=== PATIENT | female | born 1975 | race Caucasian/White ===

== ENCOUNTER 2016-12-11 21:42 | Emergency (ER) | payer MEDICAID ==
[2016-12-12] MEDS ORDERED: Tetracaine HCl/PF 0.5% 4 ML Bottle EYELF ONE (00:36)
[2016-12-12 00:47] VITALS: BP 127/72
--- NOTE | 2016-12-12 01:20 | EDM.PDOC ---
[id number] SOMETHING IN EYE Time Seen by Provider: 12/12/16 01:14 Source: Reports: Patient History Limitations: Reports: No limitations - History of Present Illness INITIAL COMMENTS - FREE TEXT/NARRATIVE: pt was at a [place] party last nite and she may have gotten a scratch in the left eye with a finger nail. Timing/Duration: Reports: Hour(s):, Other (pt is very uncomfortable. ) Location: left eye Quality: Reports: Burning, Sharp Severity: moderate Context: Reports: other ( finger nail) Associated Symptoms (Eye): Reports: decreased/blurred, sensitivity to light - Related Data Allergies/ADRs: Allergies azithromycin [From Zithromax] Allergy (Verified 12/22/15 07:59) Rash codeine Allergy (Verified 12/22/15 07:59) Rash Bkrwnmh-Ezs-Bpp Reductase Inhibitor Adverse Reaction (Verified 12/22/15 07:59) Muscle Aches moth balls Allergy (Uncoded 12/22/15 07:59) Rash Home Meds: Ambulatory Orders Medication Instructions Recorded Confirmed Losartan [Cozaar] 50 mg PO DAILY 04/30/14 12/12/16 Norethindrone [Norethindrone 5 mg PO DAILY 04/30/14 12/12/16 Acetate] Rizatriptan [Maxalt] 10 mg PO ASDIRECTED PRN 04/30/14 12/12/16 DULoxetine HCl [Cymbalta] 30 mg PO DAILY 12/18/15 12/12/16 Fluocinonide [Lidex 0.05% Top Soln] 0 ml TOP BID 12/18/15 12/12/16 Naproxen 500 mg PO BID 12/18/15 12/12/16 Citalopram [Citalopram HBr] 40 mg PO DAILY 10/22/16 12/12/16 Pregabalin [Lyrica] 75 mg PO BID 10/22/16 12/12/16 Past Medical History Cardiovascular History: Reports: High cholesterol Genitourinary History: Reports: Renal calculus, Renal disease, UTI, recurrent Other Genitourinary History: stage III kidney disease 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: Dysfunctional uterine bleeding, Endometrial ablation, Musculoskeletal History: Reports: Fibromyalgia Psychiatric History: Reports: Anxiety Endocrine/Metabolic History: Reports: Diabetes, type II, Obesity/BMI 30+ Dermatologic History: Reports: Psoriasis - Infectious Disease History Infectious Disease History: Reports: Chicken pox - Past Surgical History Female Surgical History: Reports: section, Endometrial ablation, Other (see below) Other Female Surgeries/Procedures: ureter valve reconstruction Musculoskeletal Surgical History: Reports: Carpal tunnel Social & Family History - Family History Family Medical History: Noncontributory - Tobacco Use Smoking Status *Q: Current Every Day Smoker Years of Tobacco use: 30 Packs/Tins Daily: 0.5 Used Tobacco, but Quit: No Month Tobacco Last Used: April Second Hand Smoke Exposure: No - Caffeine Use Caffeine Use: Reports: Coffee - Alcohol Use Days Per Week of Alcohol Use: 1 Number of Drinks Per Day: 2 Total Drinks Per Week: 2 - Recreational Drug Use Recreational Drug Use: No ED ROS GENERAL - Review of Systems Review Of Systems: See Below Constitutional: Reports: no symptoms HEENT: Reports: Other (pain in the lef eye after a possible scratch in the eye. ) Respiratory: Reports: No Symptoms Cardiovascular: Reports: No symptoms Endocrine: Reports: no symptoms GI/Abdominal: Reports: No symptoms : Reports: no symptoms ED EXAM GENERAL W FULL EYE - Physical Exam Exam: See Below Text/Narrative:: Pt has a painful left eye , Her viion is very blurry. Exam Limited By: No limitations General Appearance: alert, moderate distress Comments: pt has a red conjuntivial area. She is very uncoomfortable, Tetracaine was inserted in the left eye. The eye waS EXAMINED AND THERE WAS NO EVIDENCE OF A FOREIGN BODY. tHE EYE WAS STAINED AND THERE IS A DEEP LARGE CORNEAL ABRASION OVER THE PUPIL AREA. Ears: normal TMs Nose: nasal deformity Throat/Mouth: Normal inspection Neck: normal inspection Respiratory/Chest: no respiratory distress Course - Vital Signs Last Recorded V/S: Last Vital Signs Temp 36.0 C 12/12/16 00:44 Pulse 70 12/12/16 00:44 Resp 18 12/12/16 00:44 BP 127/72 12/12/16 00:44 Pulse Ox 98 12/12/16 00:44 - Orders/Labs/Meds Meds: Medications Discontinued Medications Generic Name Dose Route Start Last Admin Trade Name Freq PRN Reason Stop Dose Admin Gentamicin Sulfate 1 gm 12/12/16 09:00 12/12/16 01:29 Gentak 0.3% Ophth Oint EYELF 1 applic TID ARELI Administration Gentamicin Sulfate Confirm 12/12/16 01:24 12/12/16 01:29 Gentak 0.3% Ophth Oint Administered 12/12/16 01:25 Not Given Dose 3.5 gm .ROUTE .STK-MED ONE Tetracaine HCl 1 ml 12/12/16 00:36 12/12/16 00:42 Tetracaine 0.5% Steri-Unit Maite EYELF 12/12/16 00:37 1 ml ASDIRECTED ONE Administration - Re-Assessments/Exams Free Text/Narrative Re-Assessment/Exam: 12/12/16 01:23 TETRACAINE WAS INSERTED IN THE EYE FOR MORE PAIN RELIEF, GENTAMYCIN EYE OINTMENT WAS PUT IN THE EYE. iT WAS PATCHED. pT IS ADVISED TO GO TO THE [facility] IN THE AM. Departure - Departure Time of Disposition: 01:26 Disposition: Home, Self-Care 01 Condition: fair Clinical Impression: Corneal abrasion Instructions: Corneal Abrasion, [id number] Referrals: Aleksander Gibson MD [Primary Care Provider] - Forms: ED Department Discharge Care Plan Goals: p lEAVE PATCH ON UNTIL MID-DAY. GO TO THE [facility] FOR A RECHECK IF PAIN IS PERSISTENT. iF IT IS FEELING BETTER AND VISION IS DOING OK WHEN PATCH IS REMOVED START GENTAMYCIN EYE DROPS TID. norco 5/325 q6h prn for pain
== END 2016-12-12 01:45 | disposition home or self-care (01) ==
LOC: JP.ED 21:42
DX: S05.02XA Injury of conjunctiva and corneal abrasion without foreign body, left eye, initial encounter (principal); N18.3 Chronic kidney disease, stage 3 (moderate); E11.9 Type 2 diabetes mellitus without complications; F17.210 Nicotine dependence, cigarettes, uncomplicated; E66.9 Obesity, unspecified; Z68.41 Body mass index [BMI] 40.0-44.9, adult; Z98.890 Other specified postprocedural states; Z79.899 Other long term (current) drug therapy; Z88.1 Allergy status to other antibiotic agents; Z88.5 Allergy status to narcotic agent; Z88.8 Allergy status to other drugs, medicaments and biological substances
CPT/HCPCS: 99283; A9270

== ENCOUNTER 2017-01-08 15:26 | Emergency (ER) | payer MEDICAID ==
[2017-01-08 15:38] VITALS: BP 112/60
[2017-01-08] MEDS ORDERED: Amoxicillin/Clavulanate K 875-125 MG Tab PO ONE (16:04)
--- NOTE | 2017-01-08 16:08 | EDM.PDOC ---
ED HPI GENERAL MEDICAL PROBLEM - General Chief Complaint: Gastrointestinal Problem Stated Complaint: L EYE STYE & R ARM PAIN Time Seen by Provider: 01/08/17 15:40 Source of Information: Reports: Patient History Limitations: Reports: No limitations - History of Present Illness INITIAL COMMENTS - FREE TEXT/NARRATIVE: 41-year-old female in with several complaints. The first is she has some inflammation in the left eye the past several days, she has some swelling on the dorsal aspect of the upper right arm and some intermittent right flank pain. She has had no fevers or chills but she has generalized achiness. She also has some recurring right flank pain is concerned about a "kidney infection ". No nausea or vomiting. Just generally feels poorly. Onset: unknown/unsure (Over the past 3-5 days) Location: Reports: face, back, upper extremity, right Associated Symptoms: Reports: malaise. Denies: chest pain, cough, fever/chills , headaches, nausea/vomiting, shortness of breath Right Arm Pain Score (Numeric/FACES): 8 - Related Data Allergies Allergy/AdvReac Type Severity Reaction Status Date / Time azithromycin [From Zithromax] Allergy Rash Verified 12/22/15 07:59 codeine Allergy Rash Verified 12/22/15 07:59 Vizmonw-Rbg-Sye Reductase AdvReac Muscle Verified 12/22/15 07:59 Inhibitor Aches moth balls Allergy Rash Uncoded 12/22/15 07:59 Home Meds: Home Meds Losartan [Cozaar] 50 mg PO DAILY 04/30/14 [History] Fluocinonide [Lidex 0.05% Top Soln] 0 ml TOP BID 12/18/15 [History] Naproxen 500 mg PO BID 12/18/15 [History] Citalopram [Citalopram HBr] 40 mg PO DAILY 10/22/16 [History] Pregabalin [Lyrica] 75 mg PO BID 10/22/16 [History] Past Medical History - Past Health History Medical/Surgical History: Denies Medical/Surgical History Cardiovascular History: Reports: High cholesterol Genitourinary History: Reports: Renal calculus, Renal disease, UTI, recurrent Other Genitourinary History: stage III kidney disease 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: Dysfunctional uterine bleeding, Endometrial ablation, Musculoskeletal History: Reports: Fibromyalgia Psychiatric History: Reports: Anxiety Endocrine/Metabolic History: Reports: Diabetes, type II, Obesity/BMI 30+ Dermatologic History: Reports: Psoriasis - Infectious Disease History Infectious Disease History: Reports: Chicken pox - Past Surgical History Female Surgical History: Reports: section, Endometrial ablation, Other (see below) Other Female Surgeries/Procedures: ureter valve reconstruction Musculoskeletal Surgical History: Reports: Carpal tunnel Social & Family History - Family History Family Medical History: Noncontributory - Tobacco Use Smoking Status *Q: Heavy Tobacco Smoker Years of Tobacco use: 30 Packs/Tins Daily: 1 Used Tobacco, but Quit: No Month Tobacco Last Used: April Second Hand Smoke Exposure: No - Caffeine Use Caffeine Use: Reports: Soda - Alcohol Use Days Per Week of Alcohol Use: 1 Number of Drinks Per Day: 2 Total Drinks Per Week: 2 - Recreational Drug Use Recreational Drug Use: No ED ROS GENERAL - Review of Systems Review Of Systems: See Below Constitutional: Reports: no symptoms HEENT: Reports: Eye discharge, Eye pain ( lateral corner and upper eyelid of the left eye) Respiratory: Denies: Shortness of Breath, Cough Cardiovascular: Denies: Chest pain GI/Abdominal: Denies: Abdominal pain Skin: Reports: other (She has redness, edema, and a deep lump palpable in the upper posterior right arm) Neurological: Reports: No Symptoms Psychiatric: Reports: No symptoms ED EXAM, GENERAL - Physical Exam Exam: See Below Exam Limited By: No limitations General Appearance: alert, no apparent distress Eye Exam: left eye: other (The left thigh has some tenderness and swelling of the lateral upper eyelid with a small amount of exudate) Neck: normal inspection Respiratory/Chest: no respiratory distress Cardiovascular: regular rate, rhythm GI/Abdominal: non tender Back Exam: CVA tenderness (R) (Some mild CVA discomfort with palpation and percussion) Extremities: other (She is an unusual fullness to the subcutaneous tissue, redness and mild warmth on the back of the upper right arm. It does appear to have a small cystic lesion palpable deep to the inflammation, but there is no superficial fluctuance or firmness) Course - Vital Signs Last Recorded V/S: Last Vital Signs Temp 98.6 F 01/08/17 15:40 Pulse 76 01/08/17 15:40 Resp 16 01/08/17 15:40 BP 112/60 01/08/17 15:40 Pulse Ox 100 01/08/17 15:40 - Orders/Labs/Meds Labs: Laboratory Tests 01/08/17 Range/Units 16:04 Urine Color Yellow Urine Appearance Clear Urine pH 6.0 (4.5-8.0) Ur Specific [place] 1.015 (1.008-1.030) Urine Protein Negative (NEGATIVE) mg/dL Urine Glucose (UA) Normal (NEGATIVE) mg/dL Urine Ketones Negative (NEGATIVE) mg/dL Urine Occult Blood Negative (NEGATIVE) Urine Nitrite Negative (NEGATIVE) Urine Bilirubin Negative (NEGATIVE) Urine Urobilinogen Normal (NORMAL) mg/dL Ur Leukocyte Esterase Negative (NEGATIVE) Urine RBC 0-5 (0-5) Urine WBC 0-5 (0-5) Ur Epithelial Cells Moderate Amorphous Sediment Rare Urine Bacteria Few Urine Mucus Rare Meds: Medications Discontinued Medications Generic Name Dose Route Start Last Admin Trade Name Freq PRN Reason Stop Dose Admin Amoxicillin/Clavulanate Potassium 1 tab 01/08/17 16:04 01/08/17 16:07 Augmentin 875 Mg/125 Mg PO 01/08/17 16:05 1 tab ONETIME ONE Administration - Re-Assessments/Exams Free Text/Narrative Re-Assessment/Exam: 01/08/17 16:08 A UA was obtained. The patient was given 875 mg of Augmentin by mouth. 01/08/17 16:48 UA was completely normal. Patient was continued on Augmentin twice daily for at least another 7 days. Recheck in 2-3 days if not improving. Departure - Departure Time of Disposition: 16:59 Disposition: Home, Self-Care 01 Condition: good Clinical Impression: Cellulitis, upper arm Conjunctivitis Qualifiers: Conjunctivitis type: acute Acute conjunctivitis type: bacterial Laterality: left Qualified Code(s): H10.32 - Unspecified acute conjunctivitis, left eye Sarah Qualifiers: Laterality: left Eyelid: upper Qualified Code(s): H00.014 - Hordeolum externum left upper eyelid Instructions: Sarah Referrals: Aleksander Gibson MD [Primary Care Provider] - Forms: ED Department Discharge Care Plan Goals: Continue with warm compresses to the eye, and take antibiotic twice daily as prescribed. Consider rechecking the arm in 2-3 days if not significant improvement or return sooner if worsening or concerns.
== END 2017-01-08 17:00 | disposition home or self-care (01) ==
LOC: JP.ED 15:26
DX: L03.113 Cellulitis of right upper limb (principal); H10.32 Unspecified acute conjunctivitis, left eye; H00.014 Hordeolum externum left upper eyelid; I12.9 Hypertensive chronic kidney disease with stage 1 through stage 4 chronic kidney disease, or unspecified chronic kidney disease; N18.3 Chronic kidney disease, stage 3 (moderate); E11.9 Type 2 diabetes mellitus without complications; E78.00 Pure hypercholesterolemia, unspecified; F41.9 Anxiety disorder, unspecified; F17.210 Nicotine dependence, cigarettes, uncomplicated; E66.9 Obesity, unspecified; Z68.41 Body mass index [BMI] 40.0-44.9, adult; Z98.890 Other specified postprocedural states; Z88.1 Allergy status to other antibiotic agents; Z88.5 Allergy status to narcotic agent; Z88.8 Allergy status to other drugs, medicaments and biological substances
CPT/HCPCS: 81001; 99284; A9270; 99283

== ENCOUNTER 2017-01-12 08:34 | Day surgery (SDC) | payer MEDICAID ==
[~2017-01-12 08:34] MED LIST: Bupivacaine 0.5% 50 ML MDV ONE; Lidocaine 1% with EPINEPHrine 1:100,000 50 ML MDV ONE; Midazolam 1 MG/ML 2 ML SDV ONE; Propofol 200 MG/20 ML SDV ONE; fentaNYL 100 MCG/2 ML SDV ONE
[2017-01-12] MEDS ORDERED: Dextrose 5%-Lactated Ringers 1,000 ML IV SCH (09:15)
[2017-01-12] MEDS ORDERED: Albuterol/Ipratropium 3.0-0.5 MG/3 ML Neb Soln NEB ONE (09:45)
[2017-01-12] MEDS ORDERED: Ondansetron 4 MG/2 ML SDV ONE (09:50)
[2017-01-12] MEDS ORDERED: Dexamethasone 4 MG/ML SDV ONE (09:50)
[2017-01-12] MEDS ORDERED: Rocuronium 50 MG/5 ML Vial ONE (09:50)
[2017-01-12] MEDS ORDERED: Succinylcholine/Normal Saline 200 MG/10 ML Syringe ONE (09:50)
[2017-01-12] MEDS ORDERED: fentaNYL 250 MCG/5 ML SDV ONE (09:50)
[2017-01-12] MEDS ORDERED: Neostigmine Methylsulfate 1 MG/ML 5 ML Syringe ONE (09:50)
[2017-01-12] MEDS ORDERED: Lidocaine 1% 2 ML ONE (09:54)
[2017-01-12] MEDS ORDERED: Linezolid 600 MG in Premix Bag 1 BAG IV ONE (10:00)
[2017-01-12 11:57] VITALS: BP 114/66
--- NOTE | 2017-01-15 15:20 | OR ---
DATE OF PROCEDURE: 01/12/2017 PREOPERATIVE DIAGNOSIS: Infected soft tissue mass, right axilla. POSTOPERATIVE DIAGNOSIS: Infected subfascial soft tissue mass with associated abscess, right axilla. OPERATIVE PROCEDURE: 1. Incision and drainage of abscess located in subfascial location, right axilla. 2. Excision of necrotic soft tissue mass of the right axilla ([id number]). ANESTHESIA: General. INDICATION FOR PROCEDURE: The patient was referred per Dr. Gibson in [facility] with ongoing infection in what appeared to be soft tissue mass, possibly lymph node in the right axilla fenestrated with a new drainage and excision of that area. Potential risks including bleeding, infection, recurrence of the problem over time, problems with injury to the underlying nerves were reviewed, and the patient wishes to proceed. DETAILS OF PROCEDURE: The patient was taken to the operating room and placed in a supine position. After general endotracheal anesthesia was induced, the right axilla and surrounding areas were prepped and draped. An elliptical incision was made, removing some of the overlying skin and carried down through the skin and subcutaneous tissue. An attempt was made to maintain a plane of dissection outside of the mass. However, the abscess cavity was entered quite quickly. Creamy purulent material was obtained and gram stain showed gram- positive cocci suggestive of ongoing MRSA infection with the patient having history of MRSA infection in the past. With the abscess now drained, the soft tissue around it which was fairly necrotic in appearance, was excised we were able to remove all the necrotic soft tissue and the final plane of tissue left in place was clearly non-infective appearing fat. The mass itself measured around 6 cm and was sent for histologic evaluation. It did not appear to be lymph node per se, although the tissue was fairly necrotic. The area was packed with iodoform gauze and dressing applied. The patient will be followed up tomorrow morning with surgery nurses for the initial dressing change and instructions regarding wound care. She will be continuing the clindamycin which was started [address] Gibson. Maury Phillips MD /[id number]
== END 2017-01-12 12:01 | disposition home or self-care (01) ==
LOC: JP.SDS 08:34
PROVIDERS: ATTEND Surgery
PROC: 0JBD3ZZ Excision of Right Upper Arm Subcutaneous Tissue and Fascia, Percutaneous Approach (ICD-10-PCS; principal; 2017-01-12)
DX: R22.9 Localized swelling, mass and lump, unspecified (principal); L04.2 Acute lymphadenitis of upper limb
CPT/HCPCS: 24073; 36415; 80048; 85027; 87070; 87075; 87077; 87186; 87205; 88304; J1100; J2020; J2250; J2405; J2704; J3010; J7042; J7620

== ENCOUNTER 2017-10-08 14:39 | Emergency (ER) | payer MEDICAID ==
[2017-10-08] MEDS ORDERED: Ketorolac 60 MG/2 ML SDV IM ONE (15:05)
[2017-10-08] MEDS ORDERED: Ondansetron 4 MG Tab.DIS PO ONE (15:10)
--- NOTE | 2017-10-08 15:15 | EDM.PDOC ---
ED HPI GENERAL MEDICAL PROBLEM - General Chief Complaint: Flank Pain Stated Complaint: RIDE SIDE PAIN AROUND TO BACK Time Seen by Provider: 10/08/17 15:00 Source of Information: Reports: Patient, Old Records History Limitations: Reports: No Limitations - History of Present Illness INITIAL COMMENTS - FREE TEXT/NARRATIVE: 42 yo female with a pHx of kidney stones presents with recent onset of R flank pain. Pain is intermittent. Has nausea without vomiting. No dysuria or gross hematuria. Onset: Today Onset Date: 10/08/17 Duration: Hour(s): Location: Reports: Back (R flank) Quality: Reports: Sharp Severity: Moderate Improves with: Reports: None Worsens with: Reports: None Context: Reports: Other (Hx of kidney stones) Associated Symptoms: Reports: Nausea/Vomiting (No vomiting). Denies: Fever/ Chills Treatments STOPER: Reports: Other (see below) (none) Right Flank Pain Score (Numeric/FACES): 8 - Related Data Allergies Allergy/AdvReac Type Severity Reaction Status Date / Time azithromycin [From Zithromax] Allergy Rash Verified 01/12/17 09:06 codeine Allergy Rash Verified 01/12/17 09:06 Ytutsjd-Dyk-Xgo Reductase AdvReac Muscle Verified 01/12/17 09:06 Inhibitor Aches moth balls Allergy Rash Uncoded 01/12/17 09:06 Home Meds: Home Meds Losartan [Cozaar] 50 mg PO DAILY 04/30/14 [History] Fluocinonide [Lidex 0.05% Top Soln] 0 ml TOP BID 12/18/15 [History] Naproxen 500 mg PO BID 12/18/15 [History] Citalopram [Citalopram HBr] 40 mg PO DAILY 10/22/16 [History] Pregabalin [Lyrica] 75 mg PO BID 10/22/16 [History] Norethindrone [Norethindrone Acetate] 5 mg PO DAILY 01/11/17 [History] Triamcinolone Acetonide [Kenalog 0.1% Crm] 1 applic TOP BID 01/11/17 [History] metroNIDAZOLE [Metrocream] 1 applic TP BID PRN 01/11/17 [History] Varenicline [Chantix] 10/08/17 [History] Past Medical History - Past Health History Medical/Surgical History: Denies Medical/Surgical History HEENT History: Reports: Other (See Below) Other HEENT History: conjuctivitis in left eye, right eye injury in 2013 Cardiovascular History: Reports: High Cholesterol Genitourinary History: Reports: Renal Calculus, Renal Disease, UTI, Recurrent Other Genitourinary History: stage III kidney disease 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, Endometrial Ablation, Musculoskeletal History: Reports: Fibromyalgia Neurological History: Reports: Headaches, Chronic Psychiatric History: Reports: Anxiety Endocrine/Metabolic History: Reports: Diabetes, Type II, Obesity/BMI 30+ Hematologic History: Reports: Anemia Dermatologic History: Reports: Psoriasis - Infectious Disease History Infectious Disease History: Reports: Chicken Pox, MRSA, Shingles - Past Surgical History Female Surgical History: Reports: Section, Endometrial Ablation, Other (See Below) Musculoskeletal Surgical History: Reports: Carpal Tunnel Dermatological Surgical History: Reports: None Social & Family History - Family History Family Medical History: Noncontributory - Tobacco Use Smoking Status *Q: Current Every Day Smoker Years of Tobacco use: 25 Packs/Tins Daily: 0.5 Used Tobacco, but Quit: No Month Tobacco Last Used: April Second Hand Smoke Exposure: No - Caffeine Use Caffeine Use: Reports: Coffee - Alcohol Use Days Per Week of Alcohol Use: 1 Number of Drinks Per Day: 2 Total Drinks Per Week: 2 - Recreational Drug Use Recreational Drug Use: No ED ROS GENERAL - Review of Systems Review Of Systems: See Below Constitutional: Reports: No Symptoms Respiratory: Reports: No Symptoms Cardiovascular: Reports: No Symptoms GI/Abdominal: Reports: Decreased Appetite, Nausea. Denies: Black Stool, Bloody Stool, Constipation, Diarrhea, Distension, Flatus, Hematemesis, Hematochezia, Vomiting : Reports: Flank Pain (right). Denies: Dysuria, Hematuria Musculoskeletal: Reports: No Symptoms Skin: Reports: No Symptoms ED EXAM, RENAL/ - Physical Exam Exam: See Below Exam Limited By: No Limitations General Appearance: Alert, WD/WN, No Apparent Distress, Obese Eye Exam: Bilateral Eye: Normal Inspection Ears: Normal External Exam, Normal Canal, Hearing Grossly Normal Nose: Normal Inspection, Normal Mucosa, No Blood Throat/Mouth: Normal Inspection, Normal Voice, No Airway Compromise Head: Atraumatic, Normocephalic Neck: Normal Inspection Respiratory/Chest: No Respiratory Distress, Lungs Clear, Normal Breath Sounds, No Accessory Muscle Use Cardiovascular: Regular Rate, Rhythm, No Edema GI/Abdominal: Normal Bowel Sounds, Soft, Non-Tender, No Distention Back Exam: Normal Inspection. No: CVA Tenderness (R), CVA Tenderness (L) Extremities: Normal Inspection, Normal Range of Motion, Non-Tender, No Pedal Edema Neurological: Alert, Oriented, CN II-XII Intact, Normal Cognition, No Motor/ Sensory Deficits Psychiatric: Normal Affect, Normal Mood Skin Exam: Warm, Dry, Intact, Normal Color Lymphatic: No Adenopathy Course - Vital Signs Text/Narrative:: Toradol 60 mg IM, Zofran ODT 4 mg SL Accucheck 446 Last Recorded V/S: Last Vital Signs Temp 35.7 C 10/08/17 15:00 Pulse 91 10/08/17 16:48 Resp 20 10/08/17 16:48 BP 102/36 L 10/08/17 16:48 Pulse Ox 95 10/08/17 16:48 - Orders/Labs/Meds Orders: Active Orders 24 hr Category Date Time Status Abdomen Pelvis wo Cont [CT] Stat Exams 10/08/17 15:32 Taken Labs: Laboratory Tests 10/08/17 Range/Units 15:05 Urine Color Yellow Urine Appearance Clear Urine pH 5.0 (4.5-8.0) Ur Specific [place] 1.020 (1.008-1.030) Urine Protein Negative (NEGATIVE) mg/dL Urine Glucose (UA) 1000 H (NEGATIVE) mg/dL Urine Ketones Negative (NEGATIVE) mg/dL Urine Occult Blood Negative (NEGATIVE) Urine Nitrite Negative (NEGATIVE) Urine Bilirubin Negative (NEGATIVE) Urine Urobilinogen Normal (NORMAL) mg/dL Ur Leukocyte Esterase Negative (NEGATIVE) Urine RBC Not seen (0-5) Urine WBC 0-5 (0-5) Ur Epithelial Cells Moderate Amorphous Sediment Few Urine Bacteria Moderate Urine Mucus Not seen Urine Other Meds: Medications Discontinued Medications Generic Name Dose Route Start Last Admin Trade Name Freq PRN Reason Stop Dose Admin Insulin Detemir 30 unit 10/08/17 15:49 10/08/17 16:08 Levemir SUBCUT 10/08/17 15:50 30 units ONETIME ONE Administration Ketorolac Tromethamine 60 mg 10/08/17 15:05 10/08/17 15:14 Toradol IM 10/08/17 15:06 60 mg ONETIME ONE Administration Ondansetron HCl 4 mg 10/08/17 15:10 10/08/17 15:14 Zofran Odt PO 10/08/17 15:11 4 mg ONETIME ONE Administration - Radiology Interpretation Free Text/Narrative:: Negative CT CT Results Date: 10/08/17 CT Results Time: 17:00 Departure - Departure Time of Disposition: 17:05 Disposition: Home, Self-Care 01 Condition: Fair Clinical Impression: Rt flank pain, Elevated blood sugar - Discharge Information Referrals: Aleksander Gibson MD [Primary Care Provider] - Forms: ED Department Discharge - My Orders Last 24 Hours: My Active Orders 10/08/17 15:32 Abdomen Pelvis wo Cont [CT] Stat - Assessment/Plan Last 24 Hours: My Active Orders 10/08/17 15:32 Abdomen Pelvis wo Cont [CT] Stat
[2017-10-08] MEDS ORDERED: Insulin Detemir 100 Units/ML 3 ML Pen SUBCUT ONE (15:49)
[2017-10-08 16:48] VITALS: BP 102/36
== END 2017-10-08 17:20 | disposition home or self-care (01) ==
LOC: JP.ED 14:39
DX: R10.9 Unspecified abdominal pain (principal); E11.22 Type 2 diabetes mellitus with diabetic chronic kidney disease; N18.3 Chronic kidney disease, stage 3 (moderate); F17.210 Nicotine dependence, cigarettes, uncomplicated; Z88.5 Allergy status to narcotic agent; Z88.1 Allergy status to other antibiotic agents; Z79.899 Other long term (current) drug therapy
CPT/HCPCS: 74176; 81001; 82962; 96372; 99284; A9270; J1885

== ENCOUNTER 2017-12-18 07:30 | Inpatient (IN) | payer MEDICAID ==
[2017-12-21] MEDS ORDERED: cefOXitin 2 GM in Sodium Chloride 0.9% 50 ML IV ONE (06:00)
[2017-12-21] MEDS ORDERED: Dextrose 5%-Lactated Ringers 1,000 ML IV SCH ×2 (06:00→11:15)
[2017-12-21] MEDS ORDERED: Gabapentin 300 MG Cap PO ONE (06:00)
[2017-12-21] MEDS ORDERED: Celecoxib 200 MG Cap PO ONE (06:00)
[2017-12-21] MEDS ORDERED: Acetaminophen 500 MG Tab PO ONE (06:00)
[2017-12-21] MEDS ORDERED: Scopolamine 1.5 MG Transdermal Patch TOP ONE (06:00)
[2017-12-21] MEDS ORDERED: cefOXitin 2 GM Vial ONE (06:59)
[2017-12-21] MEDS ORDERED: fentaNYL 250 MCG/5 ML SDV ONE ×2 (07:15→07:56)
[2017-12-21] MEDS ORDERED: Glycopyrrolate 0.2 MG/ML 5 ML MDV ONE (07:16)
[2017-12-21] MEDS ORDERED: Propofol 200 MG/20 ML SDV ONE (07:16)
[2017-12-21] MEDS ORDERED: Ondansetron 4 MG/2 ML SDV ONE (07:16)
[2017-12-21] MEDS ORDERED: Dexamethasone 4 MG/ML SDV ONE (07:16)
[2017-12-21] MEDS ORDERED: Succinylcholine 200 MG/10 ML MDV ONE (07:16)
[2017-12-21] MEDS ORDERED: Rocuronium 50 MG/5 ML Vial ONE (07:16)
[2017-12-21] MEDS ORDERED: Neostigmine Methylsulfate 1 MG/ML 5 ML Syringe ONE (07:16)
[2017-12-21] MEDS ORDERED: Lactated Ringers 1,000 ML ONE (07:56)
[2017-12-21] MEDS ORDERED: Lidocaine 2% 100 MG/5 ML Syringe IVPUSH ONE (09:15)
[2017-12-21] MEDS ORDERED: Ropivacaine 60 ML, Dexamethasone 8 MG, EPINEPHrine 0.4 MG, Sodium Chloride 0.9% 17.6 ML NERVRT SCH ×4 (09:15)
[2017-12-21] MEDS ORDERED: Ketamine 500 MG/5 ML MDV IV SCH (09:15)
[2017-12-21] MEDS ORDERED: Insulin Aspart 100 Units/ML 3 ML Pen SUBCUT ONE (09:45)
[2017-12-21] MEDS ORDERED: hydrOXYzine HCl 100 MG/2 ML SDV IM ONE ×2 (09:45→11:15)
[2017-12-21] MEDS ORDERED: Meperidine PF 100 MG/ML Syringe IM ONE (11:15)
[2017-12-21] MEDS: Lidocaine 0.4%/D5W 2 GM/500 ML BAG IV SCH (11:23)
[2017-12-21] MEDS ORDERED: Metoclopramide 10 MG/2 ML SDV IVPUSH PRN (12:00)
[2017-12-21] MEDS ORDERED: Labetalol 20 MG/4 ML Syringe IVPUSH PRN (12:00)
[2017-12-21] MEDS ORDERED: diphenhydrAMINE 50 MG/ML SDV IVPUSH PRN (12:00)
[2017-12-21] MEDS ORDERED: Ondansetron 4 MG/2 ML SDV IVPUSH PRN (12:00)
[2017-12-21] MEDS: Losartan 50 MG Tab PO SCH (12:22)
[2017-12-21] MEDS: Escitalopram 20 MG Tab PO SCH (12:22)
[2017-12-21] MEDS ORDERED: Pantoprazole 40 MG Vial IVPUSH SCH (13:30)
[2017-12-21] MEDS: cefOXitin 2 GM in Sodium Chloride 0.9% 50 ML IV SCH ×2 (13:56→20:02)
[2017-12-21] MEDS ORDERED: MVI, Adult with Vitamin K 10 ML, Thiamine 100 MG, Chromium/Copper/Mang/Selen/Zn 1 ML in... IV SCH ×4 (16:00)
[2017-12-21] MEDS: Acetaminophen Soln 650 MG/20.3 ML UD Cup PO SCH ×2 (16:15→21:01)
[2017-12-21] MEDS ORDERED: Insulin Aspart 100 Units/ML 3 ML Pen SUBCUT STA (16:48)
[2017-12-21] MEDS: Heparin Sodium 5,000 Units/ML Vial SUBCUT SCH (20:05)
[2017-12-21] MEDS ORDERED: Pregabalin 75 MG Cap PO SCH (21:00)
[2017-12-21] MEDS ORDERED: Insulin Detemir 100 Units/ML 3 ML Pen SUBCUT ONE (21:00)
[2017-12-21] MEDS: Insulin Aspart 100 Units/ML 3 ML Pen SUBCUT PRN (21:05)
[2017-12-22] MEDS: cefOXitin 2 GM in Sodium Chloride 0.9% 50 ML IV SCH ×2 (01:20→09:38)
[2017-12-22] MEDS: Lidocaine 0.4%/D5W 2 GM/500 ML BAG IV SCH (01:22)
[2017-12-22] MEDS ORDERED: Iohexol 647 MG/ML 50 ML SDV PO STA (02:39)
[2017-12-22] MEDS: Acetaminophen Soln 650 MG/20.3 ML UD Cup PO SCH ×4 (03:14→21:13)
[2017-12-22] MEDS: Insulin Aspart 100 Units/ML 3 ML Pen SUBCUT PRN ×2 (04:36→12:06)
[2017-12-22] MEDS: hydrOXYzine HCl 100 MG/2 ML SDV IM PRN ×2 (06:04→22:47)
[2017-12-22] MEDS: Meperidine PF 100 MG/ML Syringe IM PRN ×2 (07:12→19:23)
--- NOTE | 2017-12-22 08:37 | CR ---
UGI wo KUB HISTORY: eval R -Y GBP FINDINGS: Limited upper GI series was obtained without fluoroscopy. Water-soluble contrast was admini stered orally. Immediate along with 15 minute delayed images were obtained. Small gastric pouch is de monstrated. Contrast passes readily through the gastrojejunostomy into loops of jejunum. No obstructi on is identified. There is no contrast extravasation. Surgical drain is noted left upper quadrant. IMPRESSION: No postoperative complication identified status post Drew-en-Y gastric bypass.
[2017-12-22] MEDS ORDERED: Ondansetron 4 MG Tab.DIS PO PRN (09:01)
[2017-12-22] MEDS ORDERED: Lactated Ringers 1,000 ML IV SCH (09:15)
[2017-12-22] MEDS ORDERED: Escitalopram 20 MG Tab PO SCH (09:15)
[2017-12-22] MEDS ORDERED: Insulin Detemir 100 Units/ML 3 ML Pen SUBCUT ONE ×2 (09:15→20:00)
[2017-12-22] MEDS ORDERED: NORTRIPTYLINE HCL 50 MG PO SCH (09:15)
[2017-12-22] MEDS: Pregabalin 75 MG Cap PO SCH ×2 (09:55→20:33)
[2017-12-22] MEDS: Celecoxib 200 MG Cap PO SCH (09:56)
[2017-12-22] MEDS: Heparin Sodium 5,000 Units/ML Vial SUBCUT SCH ×2 (09:57→20:33)
[2017-12-22] MEDS: Losartan 50 MG Tab PO SCH (09:57)
[2017-12-22] MEDS: Escitalopram 20 MG Tab PO SCH (10:01)
[2017-12-22] MEDS: Nortriptyline 25 MG Cap PO SCH ×2 (10:04→20:34)
[2017-12-22] MEDS: SCOPOLAMINE PATCH CHECK TOP SCH (10:09)
[2017-12-22] MEDS: MVI, Adult with Vitamin K 10 ML, Thiamine 100 MG, Chromium/Copper/Mang/Selen/Zn 1 ML in... IV SCH ×4 (15:44)
[2017-12-22] MEDS: Pantoprazole 40 MG Delayed-Release Granules 1 Packet PO SCH (15:45)
[2017-12-22] MEDS ORDERED: MVI, Adult with Vitamin K 10 ML, Thiamine 100 MG, Chromium/Copper/Mang/Selen/Zn 1 ML in... IV SCH ×4 (16:00)
--- NOTE | 2017-12-22 20:54 | PN ---
DATE OF SERVICE: 12/22/2017 SUBJECTIVE: Marlene is postop day 1. Her upper GI this morning was normal. Blood sugars have been elevated at 223 and 277. She has been up ambulating. She did report an increased pain in her left upper abdomen that radiated up to her left shoulder. REVIEW OF SYSTEMS: Remainder of review of systems negative for any pertinent positives and negatives. Oral intake on a step 1 gastric bypass diet was 1220, urine output 3700, and ANDREE drain put out 100 and 110. PHYSICAL EXAMINATION: GENERAL: Marlene Olsen is a 42-year-old female. She is alert and orientated. VITAL SIGNS: TPR is 96.5, 79, 16, and blood pressure 113/56. HEENT: Negative. NECK: Supple. HEART: Regular rate and rhythm. LUNGS: Clear. ABDOMEN: Dressings dry and intact. Abdominal binder is on. ANDREE drain is intact draining a light pink serosanguineous drainage. EXTREMITIES: Without peripheral edema. ASSESSMENT: Laparoscopic Drew-en-Y gastric bypass surgery. PLAN: 1. Discontinue D5 LR IV solution, change to lactated Ringer's at 100 mL/hour. 2. Saline lock IV if oral intake adequate. 3. Levemir 10 units subcutaneous now. 4. Levemir 20 units subcutaneous at bedtime. 5. Alogliptin 25 mg p.o. daily equivalent to Januvia 100 mg b.i.d. 6. Change Tylenol from liquid to chewable. 7. Step 2 gastric bypass diet without cereal. 8. Dressing off. 9. Shower. 10.Good pulmonary toilet. 11.We will evaluate p.r.n. or in a.m. Ashley Cheng PA-C /[id number]
[2017-12-23] MEDS: Meperidine PF 100 MG/ML Syringe IM PRN (02:49)
[2017-12-23] MEDS: Acetaminophen Soln 650 MG/20.3 ML UD Cup PO SCH (04:03)
[2017-12-23] MEDS ORDERED: Cyanocobalamin (Vitamin B12) 1,000 MCG/ML SDV IM ONE (09:00)
[2017-12-23] MEDS: SCOPOLAMINE PATCH CHECK TOP SCH (10:11)
[2017-12-23] MEDS: Pregabalin 75 MG Cap PO SCH ×2 (10:18→22:13)
[2017-12-23] MEDS: Celecoxib 200 MG Cap PO SCH (10:18)
[2017-12-23] MEDS: Escitalopram 20 MG Tab PO SCH (10:18)
[2017-12-23] MEDS: Nortriptyline 25 MG Cap PO SCH ×2 (10:19→22:14)
[2017-12-23] MEDS: Heparin Sodium 5,000 Units/ML Vial SUBCUT SCH ×2 (10:21→22:13)
[2017-12-23] MEDS: Losartan 50 MG Tab PO SCH (10:22)
[2017-12-23] MEDS: Acetaminophen/oxyCODONE 325-5 MG Tab PO PRN ×3 (10:25→17:26)
[2017-12-23] MEDS: Pantoprazole 40 MG Delayed-Release Granules 1 Packet PO SCH (14:39)
[2017-12-23] MEDS: MVI, Adult with Vitamin K 10 ML, Thiamine 100 MG, Chromium/Copper/Mang/Selen/Zn 1 ML in... IV SCH ×4 (18:24)
[2017-12-23] MEDS ORDERED: Losartan 50 MG Tab PO SCH (21:00)
[2017-12-24] MEDS: Acetaminophen/oxyCODONE 325-5 MG Tab PO PRN ×2 (04:36→09:22)
[2017-12-24] MEDS: Heparin Sodium 5,000 Units/ML Vial SUBCUT SCH (08:08)
[2017-12-24] MEDS: Celecoxib 200 MG Cap PO SCH (08:08)
[2017-12-24] MEDS: Pregabalin 75 MG Cap PO SCH (08:11)
[2017-12-24] MEDS: Escitalopram 20 MG Tab PO SCH (08:11)
[2017-12-24] MEDS: Nortriptyline 25 MG Cap PO SCH (08:12)
[2017-12-24 08:19] VITALS: BP 131/70
[2017-12-24] MEDS ORDERED: Magnesium Hydroxide 400 MG/5 ML Susp 30 ML Cup PO ONE (09:30)
--- NOTE | 2017-12-24 16:51 | PN ---
DATE OF SERVICE: 12/23/2017 The patient has been afebrile with stable vital signs, still requiring some IM Demerol. We will try and switch over to Percocet today in addition to the Celebrex and gabapentin. We will discontinue the scheduled Tylenol given the use of the Percocet. Otherwise, her blood sugars are in the low to mid 100s. Apparently, she was not started on the Januvia or the Januvia equivalent yesterday, so she has only been getting the Victoza plus the Levemir. We will hold the Levemir tonight and see how things go without that and she may be ready for discharge home tomorrow. Maury Phillips MD /[id number]
--- NOTE | 2017-12-25 10:28 | DISCH ---
FINAL DIAGNOSES: 1. Morbid obesity. 2. Marked hepatomegaly. 3. Paraesophageal diaphragmatic hernia. 4. Poorly-controlled type 2 diabetes mellitus. 5. History of psoriasis. 6. History of chronic kidney disease. 7. Anxiety and depression. 8. Fibromyalgia. OPERATIVE PROCEDURE: Laparoscopic Drew-en-Y gastric bypass along with gastroenterostomy, liver biopsy, and repair of paraesophageal diaphragmatic hernia that was done on 12/21/2017. SUMMARY: This is a 42-year-old female presenting with longstanding morbid obesity and increasingly significant comorbidities. After preoperative evaluation and discussion, she wished to proceed with a gastric bypass procedure. This was done on the day of admission. Postoperatively, no major problems were noted. Because of renal insufficiency we did not use any Celebrex in this case, and the patient is presently managing her pain with Percocet. Otherwise, she will be continued on home medications, other than we will hold the Naprosyn and the insulin glargine. The patient's blood sugars, with her having the Trulicity the day prior to surgery, have remained in the 170 to 190 range over the last 24 hours without any additional diabetic treatment, i.e. Trulicity only, and we will, at this point, have her go home just using the Trulicity. She will be instructed to measure her blood sugars 2-3 times a day and bring that list to the followup appointment. Followup appointment would be with Ashley Cheng at [facility] on 01/01/2018. She will be instructed to hold the step-2 diet until that time and hold vitamins and other supplements until after that first appointment.
--- NOTE | 2017-12-26 13:53 | OR ---
DATE OF PROCEDURE: 12/21/2017 PREOPERATIVE DIAGNOSIS: Morbid obesity. POSTOPERATIVE DIAGNOSES: 1. Morbid obesity. 2. Marked hepatomegaly. 3. Paraesophageal diaphragmatic hernia. OPERATIVE PROCEDURE: 1. Laparoscopic Drew-en-Y gastric bypass along with gastroenterostomy (29927). 2. Wally-Cut needle liver biopsy (41076). 3. Repair of paraesophageal diaphragmatic hernia (59972). ANESTHESIA: General. SLATE CUTTER: Ashley Cheng PA-C and SHILA Allison. INDICATIONS FOR PROCEDURE: This is a 42-year-old presenting with longstanding morbid obesity and increasingly significant comorbidities. After preoperative evaluation and discussion, she wished to proceed with a gastric bypass procedure. Potential risks including bleeding, infection, leaks from various GI tract closures, problems with bowel obstruction over time as well as possibility of cardiopulmonary, septic, or hemorrhagic complications leading to were discussed, and the patient wishes to proceed. DETAILS OF PROCEDURE: The patient was taken to the operating room. After general endotracheal anesthesia was induced, was placed in a lithotomy position. The gastrointestinal balloon catheter was then placed and the abdomen prepped and draped. At 15 cm inferior, 5 cm left of xiphoid process, a transverse incision was made and the peritoneal cavity entered under direct vision with an Optiview trocar inflated to 15 mmHg pressure with CO2. Laparoscope was reinserted. No underlying trocar insertion site injuries were seen. Following this, bilateral transverse abdominis plane blocks were placed with direct visualization of the needle tip in the transverse abdominis plane and the bilateral injections with standard solution. Following this, 5 additional trocars were placed across the upper and mid abdomen and general exploration undertaken. The patient was noted to have a quite striking hepatomegaly with the liver being engorged and fatty infiltrated at 3-4 times normal size. There was no gross evidence of cirrhosis per se, but Wally-Cut needles biopsies were obtained from the left lobe of the liver. Minimal bleeding from the biopsy sites was controlled with electrocautery. The omentum was then divided in the midline up to the level of the transverse colon. This allowed identification of the small bowel with ligament of Treitz. The small bowel was then traced out to 200 cm distal to that point, was divided transversely with a FAIZAN stapler. The small bowel was then traced out an additional 200 cm where the [id number] enteroenterostomy was accomplished with internal firing of the Endo FAIZAN 60 mm stapler. The common opening was then closed transversely with the same stapler and angles anastomosed, and mesenteric defect approximated with some 0 Ethibond stitch along with fibrin sealant. The divided end of the Drew limb was then from the mesentery for a few centimeters, which allowed an antecolic position of the Drew limb up to the level of the gastroesophageal junction without tension. The liver was then retracted anteriorly. The patient was noted to have a moderate-sized paraesophageal diaphragmatic hernia with there being a prolapse of the perigastric fat and fundus of the stomach in a plane anterior to the course of the esophagus and the latter was reduced and the peritoneum overlying the hernia was then incised and reflected downward. An anterior repair of the diaphragmatic hernia was accomplished with some 0 Ethibond sutures reinforced with PTFE pledgets. The gastrointestinal balloon catheter was then inflated to 15 mL and pulled up snugly against the EG junction. The gastric wall over the apex balloon was then marked with electrocautery, and balloon catheter deflated and pulled up from the esophagus. The lesser omental tissue adjacent to the gastric cardia was incised allowing dissection behind the stomach and pouch formation was initiated with a firing of the FAIZAN stapler at the level of the cauterized israel in the gastric cardia. Pouch was then completed with some additional firings of the FAIZAN stapler up to and through the angle of His. Upon completion of the pouch, both staple lines were noted to be intact. The anvil of a 25 mm EEA stapler was attached to a Lehigh sump-type tube. The latter was taken out through a small opening in the gastric pouch allowing the anvil likewise to be pulled down to within the gastric pouch. The divided end of the Drew limb was then opened and the main body of the EEA stapler was passed several centimeters into the Drew limb, brought up the anvil, united with it, thus creating a gastrojejunostomy. Upon removal of the stapler, double donuts of mucosa were noted within it. The small bowel was closed off with a vascular staple line. Gastrojejunostomy was reinforced with some 3-0 Vicryl seromuscular stitch along with fibrin sealant. Leak test was accomplished with injection of 120 mL of air in the gastric pouch while submerged in a cefoxitin-containing saline solution. A single Angel-Mcdonnell drain was then placed through the left subcostal trocar site and positioned adjacent to the gastric cardia from there up into the splenic fossa. The remaining trocars were then removed, cavity deflated. Incisions were closed with a 4-0 Vicryl skin stitch and drains affixed with 4-0 Vicryl stitch as well. The patient was taken to the recovery room in satisfactory condition. There were no evident complications. Physician assistant womens volleyball coach, Ashley Cheng, played an essential role in assisting in this case, helping to position the patient, retract structures as needed as well as suturing and cutting sutures when indicated. Her presence improved the patient's safety and decreased the operative time. Maury Phillips MD /[id number]
== END 2017-12-24 09:40 | disposition home or self-care (01) | DRG 621 ==
LOC: JP.SDSSCHI 12-21 05:28 → JP.SDS 12-21 05:28 → EDSTATUS 12-21 08:00 → JP.2SS 12-21 09:15
PROVIDERS: ADMIT Surgery; ATTEND Surgery
PROC: 0D164ZA Bypass Stomach to Jejunum, Percutaneous Endoscopic Approach (ICD-10-PCS; principal; 2017-12-21)
PROC: 0FB24ZX Excision of Left Lobe Liver, Percutaneous Endoscopic Approach, Diagnostic (ICD-10-PCS; 2017-12-21)
PROC: 0BQT4ZZ Repair Diaphragm, Percutaneous Endoscopic Approach (ICD-10-PCS; 2017-12-21)
PROC: 3E0T3BZ Introduction of Anesthetic Agent into Peripheral Nerves and Plexi, Percutaneous Approach (ICD-10-PCS; 2017-12-21)
DX: E66.01 Morbid (severe) obesity due to excess calories (principal); Z68.41 Body mass index [BMI] 40.0-44.9, adult; R16.0 Hepatomegaly, not elsewhere classified; K44.9 Diaphragmatic hernia without obstruction or gangrene; E11.65 Type 2 diabetes mellitus with hyperglycemia; Z79.4 Long term (current) use of insulin; N18.3 Chronic kidney disease, stage 3 (moderate); L40.9 Psoriasis, unspecified; G43.909 Migraine, unspecified, not intractable, without status migrainosus; F41.8 Other specified anxiety disorders; M72.2 Plantar fascial fibromatosis; F11.21 Opioid dependence, in remission; Z88.1 Allergy status to other antibiotic agents; Z88.5 Allergy status to narcotic agent; Z88.8 Allergy status to other drugs, medicaments and biological substances; K76.0 Fatty (change of) liver, not elsewhere classified; M79.7 Fibromyalgia
CPT/HCPCS: 36415; 74240; 74240-26; 80048; 82962; 83036; 83735; 84100; 86850; 86900; 86901; 87070; 88307; 88313; 94762; A9270-GY; C9113; J0171; J0330; J0694; J1100; J1644; J2001; J2175; J2405; J2704; J2710; J2795; J3010; J3410; J3411; J3420; J7030; J7040; J7042; J7050; J7120; Q9967

== ENCOUNTER 2017-12-29 10:24 | Emergency (ER) | payer MEDICAID ==
[2017-12-29] MEDS ORDERED: Sodium Chloride 0.9% 1,000 ML IV SCH (11:00)
--- NOTE | 2017-12-29 11:07 | EDM.PDOC ---
ED HPI GENERAL MEDICAL PROBLEM - General Chief Complaint: Abdominal Pain Stated Complaint: GASTRIC BYPASS/SOB/WEAK Time Seen by Provider: 12/29/17 11:05 Source of Information: Reports: Patient History Limitations: Reports: No Limitations - History of Present Illness INITIAL COMMENTS - FREE TEXT/NARRATIVE: pt is having abdomanal pain and she is feeling sob. She has not been able to hold anything down. She is very dry in the mouth. She is passing gas. She has generalized abdomanal pain. Her wounds do look good. Duration: Hour(s):, Getting Worse Location: Reports: Abdomen, Other ( She has generalized body pain. ) Associated Symptoms: Reports: Cough, Nausea/Vomiting, Shortness of Breath Abdominal Pain Score (Numeric/FACES): 8 - Related Data Allergies Allergy/AdvReac Type Severity Reaction Status Date / Time azithromycin [From Zithromax] Allergy Rash Verified 12/29/17 10:43 codeine Allergy Rash Verified 12/29/17 10:43 Feorifq-Umm-Orq Reductase AdvReac Muscle Verified 12/29/17 10:43 Inhibitor Aches moth balls Allergy Rash Uncoded 12/29/17 10:43 Home Meds: Home Meds Losartan [Cozaar] 50 mg PO DAILY 04/30/14 [History] Fluocinonide [Lidex 0.05% Top Soln] 0 ml TOP BID PRN 12/18/15 [History] Naproxen 500 mg PO BID 12/18/15 [History] Pregabalin [Lyrica] 150 mg PO BID 10/22/16 [History] Triamcinolone Acetonide [Kenalog 0.1% Crm] 1 applic TOP BID 01/11/17 [History] metroNIDAZOLE [Metrocream] 1 applic TP BID PRN 01/11/17 [History] Calcium Citrate/Vitamin D3 [Calcium Citrate - Vit D Caplet] 1 tab PO BID [History] Cyanocobalamin (Vitamin B-12) [Vitamin B-12] 1,000 mcg SL DAILY 12/19/17 [ History] Dulaglutide [Trulicity] 1.5 mg SQ WEEKLY 12/19/17 [History] Escitalopram Oxalate [Lexapro] 20 mg PO DAILY 12/19/17 [History] Insulin Glargine,Hum.Rec.Anlog [Basaglar Kwikpen U-100] 30 unit SQ DAILY [History] Multivitamins [Childrens Chewable Vitamin] 1 tab PO BID 12/19/17 [History] Nortriptyline HCl [Pamelor] 50 mg PO BID 12/19/17 [History] traMADol HCl [Tramadol HCl] 50 mg PO TID PRN 12/19/17 [History] Past Medical History - Past Health History Medical/Surgical History: Denies Medical/Surgical History HEENT History: Reports: Other (See Below) Other HEENT History: conjuctivitis in left eye, right eye injury in 2013 Cardiovascular History: Reports: High Cholesterol Respiratory History: Reports: Asthma Genitourinary History: Reports: Renal Calculus, Renal Disease, UTI, Recurrent Other Genitourinary History: stage III kidney disease BAG SEALER History: Reports: Dysfunctional Uterine Bleeding, Endometrial Ablation, Musculoskeletal History: Reports: Arthritis, Fibromyalgia Neurological History: Reports: Headaches, Chronic Psychiatric History: Reports: Anxiety, Depression, Mood Swings, Panic Attack Endocrine/Metabolic History: Reports: Diabetes, Type II, Obesity/BMI 30+ Hematologic History: Reports: Anemia Dermatologic History: Reports: Psoriasis, Venous Stasis Dermatitis - Infectious Disease History Infectious Disease History: Reports: Chicken Pox, MRSA, Shingles - Past Surgical History HEENT Surgical History: Reports: None, Oral Surgery Female Surgical History: Reports: Section, Endometrial Ablation, Other (See Below) Other Female Surgeries/Procedures: ureter valve reconstruction, essure Musculoskeletal Surgical History: Reports: Carpal Tunnel Dermatological Surgical History: Reports: Other (See Below) Social & Family History - Family History Family Medical History: Noncontributory - Tobacco Use Smoking Status *Q: Unknown Ever Smoked Years of Tobacco use: 30 Packs/Tins Daily: 1 Used Tobacco, but Quit: Yes Month/Year Tobacco Last Used: September Second Hand Smoke Exposure: Yes - Caffeine Use Caffeine Use: Reports: Soda - Alcohol Use Days Per Week of Alcohol Use: 1 Number of Drinks Per Day: 2 Total Drinks Per Week: 2 - Recreational Drug Use Recreational Drug Use: No ED ROS GENERAL - Review of Systems Review Of Systems: See Below Constitutional: Reports: Chills, Other (alot of body aches. ) HEENT: Reports: No Symptoms, Other (mouth is very dry. ) Respiratory: Reports: Shortness of Breath Cardiovascular: Reports: No Symptoms Endocrine: Reports: No Symptoms GI/Abdominal: Reports: Abdominal Pain, Vomiting, Other (pt is passing gas. She has not been able to hold anything down for the past few hours. ) : Reports: Other (pt has been voiding very infrequently) Musculoskeletal: Reports: Muscle Pain Skin: Reports: No Symptoms ED EXAM, GI/ABD - Physical Exam Exam: See Below Text/Narrative:: Pt arrived with generalized body pain. She is complaining of generalized abdomanal pain. Exam Limited By: No Limitations General Appearance: Alert, Anxious, Moderate Distress, Other (pupils ar equal and reactive. ) Ears: Normal TMs Nose: Normal Inspection Throat/Mouth: Normal Inspection Head: Atraumatic Neck: Normal Inspection Respiratory/Chest: No Respiratory Distress, Other (o2 sats are good. ) Cardiovascular: Regular Rate, Rhythm, Tachycardia, Other (pt had a heart rate of 120. ) GI/Abdominal Exam: Other ( generalized tenderness. ) (Female) Exam: Deferred Rectal (Female) Exam: Deferred Back Exam: Normal Inspection Extremities: Normal Inspection Neurological: Alert, Oriented, Normal Cognition Psychiatric: Depressed Mood Course - Vital Signs Last Recorded V/S: Last Vital Signs Temp 36.9 C 12/29/17 10:39 Pulse 122 H 12/29/17 10:39 Resp 16 12/29/17 10:39 BP 143/88 H 12/29/17 10:39 Pulse Ox 97 12/29/17 10:39 - Orders/Labs/Meds Orders: Active Orders 24 hr Category Date Time Status EKG Documentation Completion [RC] ASDIRECTED Care 12/29/17 10:56 Active CULTURE URINE [RM] Stat Lab 12/29/17 11:46 Ordered UA W/MICROSCOPIC [URIN] Urgent Lab 12/29/17 11:27 Ordered Lactated Ringers [Ringers, Lactated] 1,000 ml Med 12/29/17 12:00 Active IV ASDIRECTED MVI, Adult with Vitamin K [Infuvite Adult] 10 ml Med 12/29/17 14:20 Active Thiamine [Vitamin B-1] 200 mg Chromium/Copper/Rodrigo/Selen/Zn [Multitrace-5 Concentrate ] 1 ml Lactated Ringers [Ringers, Lactated] 1,000 ml IV ONETIME Sodium Chloride 0.9% [Normal Saline] 1,000 ml Med 12/29/17 11:00 Active IV ASDIRECTED EKG 12 Lead [EK] Routine Ther 12/29/17 10:56 Ordered Medication Orders Sodium Chloride (Normal Saline) 1,000 mls @ 999 mls/hr IV ASDIRECTED ARELI Last Admin: 12/29/17 11:45 Dose: 999 mls/hr Lactated Ringer's (Ringers, Lactated) 1,000 mls @ 999 mls/hr IV ASDIRECTED ARELI Last Admin: 12/29/17 12:42 Dose: 999 mls/hr Multivitamins/Minerals 10 ml/Thiamine HCl 200 mg/ Chromium/Copper/Manganese/ Seleni/Zn 1 ml/ Lactated Ringer's 1,013 mls @ 500 mls/hr IV ONETIME ONE Stop: 12/29/17 16:21 Last Admin: 12/29/17 14:45 Dose: 500 mls/hr Labs: Laboratory Tests 12/29/17 12/29/17 12/29/17 Range/Units 11:16 11:16 11:27 WBC 12.6 H (4.5-11.0) K/uL RBC 4.49 (3.30-5.50) M/uL Hgb 14.0 (12.0-15.0) g/dL Hct 41.9 (36.0-48.0) % MCV 93 (80-98) fL MCH 31 (27-31) pg MCHC 33 (32-36) % Plt Count 320 (150-400) K/uL Neut % (Auto) 76 H (36-66) % Lymph % (Auto) 11 L (24-44) % [place] % (Auto) 8 H (2-6) % Eos % (Auto) 5 H (2-4) % Baso % (Auto) 1 (0-1) % Sodium 135 L (140-148) mmol/L Potassium 4.6 (3.6-5.2) mmol/L Chloride 97 L (100-108) mmol/L Carbon Dioxide 17 L (21-32) mmol/L Anion Gap 25.6 H (5.0-14.0) mmol/L BUN 25 H (7-18) mg/dL Creatinine 1.5 H (0.6-1.0) mg/dL Est Cr Clr Drug Dosing 46.54 mL/min Estimated GFR (MDRD) 38 L (>60) Glucose 352 H (74-106) mg/dL Lactic Acid (0.4-2.0) mmol/L Calcium 9.8 D (8.5-10.1) mg/dL Total Bilirubin 0.7 (0.2-1.0) mg/dL AST 44 H (15-37) U/L ALT 80 H (12-78) U/L Alkaline Phosphatase 120 H (46-116) U/L Total Protein 8.6 H (6.4-8.2) g/dL Albumin 3.7 (3.4-5.0) g/dL Globulin 4.9 H (2.3-3.5) g/dL Albumin/Globulin Ratio 0.8 L (1.2-2.2) Urine Color Yellow Urine Appearance Cloudy Urine pH 5.0 (4.5-8.0) Ur Specific Central 1.020 (1.008-1.030) Urine Protein 500 H (NEGATIVE) mg/dL Urine Glucose (UA) 1000 H (NEGATIVE) mg/dL Urine Ketones 50 H (NEGATIVE) mg/dL Urine Occult Blood Trace (NEGATIVE) Urine Nitrite Negative (NEGATIVE) Urine Bilirubin Small (NEGATIVE) Urine Urobilinogen Normal (NORMAL) mg/dL Ur Leukocyte Esterase Small (NEGATIVE) Urine RBC 5-10 H (0-5) Urine WBC 5-10 H (0-5) Ur Epithelial Cells Many Amorphous Sediment Rare Urine Bacteria Many Urine Mucus Not seen 12/29/17 Range/Units 11:45 WBC (4.5-11.0) K/uL RBC (3.30-5.50) M/uL Hgb (12.0-15.0) g/dL Hct (36.0-48.0) % MCV (80-98) fL MCH (27-31) pg MCHC (32-36) % Plt Count (150-400) K/uL Neut % (Auto) (36-66) % Lymph % (Auto) (24-44) % [place] % (Auto) (2-6) % Eos % (Auto) (2-4) % Baso % (Auto) (0-1) % Sodium (140-148) mmol/L Potassium (3.6-5.2) mmol/L Chloride (100-108) mmol/L Carbon Dioxide (21-32) mmol/L Anion Gap (5.0-14.0) mmol/L BUN (7-18) mg/dL Creatinine (0.6-1.0) mg/dL Est Cr Clr Drug Dosing mL/min Estimated GFR (MDRD) (>60) Glucose (74-106) mg/dL Lactic Acid 1.5 (0.4-2.0) mmol/L Calcium (8.5-10.1) mg/dL Total Bilirubin (0.2-1.0) mg/dL AST (15-37) U/L ALT (12-78) U/L Alkaline Phosphatase (46-116) U/L Total Protein (6.4-8.2) g/dL Albumin (3.4-5.0) g/dL Globulin (2.3-3.5) g/dL Albumin/Globulin Ratio (1.2-2.2) Urine Color Urine Appearance Urine pH (4.5-8.0) Ur Specific Central (1.008-1.030) Urine Protein (NEGATIVE) mg/dL Urine Glucose (UA) (NEGATIVE) mg/dL Urine Ketones (NEGATIVE) mg/dL Urine Occult Blood (NEGATIVE) Urine Nitrite (NEGATIVE) Urine Bilirubin (NEGATIVE) Urine Urobilinogen (NORMAL) mg/dL Ur Leukocyte Esterase (NEGATIVE) Urine RBC (0-5) Urine WBC (0-5) Ur Epithelial Cells Amorphous Sediment Urine Bacteria Urine Mucus Meds: Medications Generic Name Dose Route Start Last Admin Trade Name Freq PRN Reason Stop Dose Admin Sodium Chloride 1,000 mls @ 999 mls/hr 12/29/17 11:00 12/29/17 11:45 Normal Saline IV 999 mls/hr ASDIRECTED ARELI Administration Lactated Ringer's 1,000 mls @ 999 mls/hr 12/29/17 12:00 12/29/17 12:42 Ringers, Lactated IV 999 mls/hr ASDIRECTED ARELI Administration Multivitamins/Minerals 10 ml/ 1,013 mls @ 500 mls/hr 12/29/17 14:20 12/29/17 14:45 Thiamine HCl 200 mg/ Chromium/ IV 12/29/17 16:21 500 mls/hr Copper/Manganese/Seleni/Zn 1 ONETIME ONE Administration ml/ Lactated Ringer's Discontinued Medications Generic Name Dose Route Start Last Admin Trade Name Freq PRN Reason Stop Dose Admin Meropenem 1 gm/ Sodium 50 mls @ 100 mls/hr 12/29/17 14:20 12/29/17 14:45 Chloride IV 12/29/17 14:49 100 mls/hr ONETIME ONE Administration Insulin Human Regular 5 unit 12/29/17 12:00 12/29/17 12:42 Novolin R SUBCUT 12/29/17 12:01 5 units ONETIME ONE Administration Protocol - Re-Assessments/Exams Free Text/Narrative Re-Assessment/Exam: 12/29/17 11:57 pt has a mild elvation in her wbc, her electrolytes indicate dehydration Her ekg shows a sinus tach. chest xray looks good. Her bs is 352 12/29/17 14:05 pt has been hydrated with 2 liters of fluid. She is feeling some better. She had a cat scan of the abdoman which looked good. There is a small amount of doretha air around the pouch. There is no dilated loops of bowel. 12/29/17 14:21 Dr Phillips saw the pt and he felt she could go home Will hydrate with another liter of lactated ringers. 12/29/17 15:08 Departure - Departure Time of Disposition: 14:07 Disposition: Admitted As Inpatient 64 Condition: Fair Clinical Impression: Dehydration, Gastric bypass status for obesity - Discharge Information Referrals: Aleksander Gibson MD [Primary Care Provider] - Forms: ED Department Discharge Care Plan Goals: cont with same fluid program, keep up coming appt, with Dr Phillips - My Orders Last 24 Hours: My Active Orders 12/29/17 10:56 EKG Documentation Completion [RC] ASDIRECTED EKG 12 Lead [EK] Routine 12/29/17 11:00 Sodium Chloride 0.9% [Normal Saline] 1,000 ml IV ASDIRECTED 12/29/17 11:27 UA W/MICROSCOPIC [URIN] Urgent 12/29/17 11:46 CULTURE URINE [RM] Stat 12/29/17 12:00 Lactated Ringers [Ringers, Lactated] 1,000 ml IV ASDIRECTED 12/29/17 14:20 MVI, Adult with Vitamin K [Infuvite Adult] 10 ml Thiamine [Vitamin B-1] 200 mg Chromium/Copper/Rodrigo/Selen/Zn [Multitrace-5 Concentrate] 1 ml Lactated Ringers [Ringers, Lactated] 1,000 ml IV ONETIME - Assessment/Plan Last 24 Hours: My Active Orders 12/29/17 10:56 EKG Documentation Completion [RC] ASDIRECTED EKG 12 Lead [EK] Routine 12/29/17 11:00 Sodium Chloride 0.9% [Normal Saline] 1,000 ml IV ASDIRECTED 12/29/17 11:27 UA W/MICROSCOPIC [URIN] Urgent 12/29/17 11:46 CULTURE URINE [RM] Stat 12/29/17 12:00 Lactated Ringers [Ringers, Lactated] 1,000 ml IV ASDIRECTED 12/29/17 14:20 MVI, Adult with Vitamin K [Infuvite Adult] 10 ml Thiamine [Vitamin B-1] 200 mg Chromium/Copper/Rodrigo/Selen/Zn [Multitrace-5 Concentrate] 1 ml Lactated Ringers [Ringers, Lactated] 1,000 ml IV ONETIME
--- NOTE | 2017-12-29 11:36 | CR ---
Heart size within normal limits. Pulmonary vasculature within normal limits. No focal consolidation.
[2017-12-29] MEDS ORDERED: Insulin Regular, Human 100 Units/ML 10 ML Vial SUBCUT ONE ×2 (12:00→15:10)
[2017-12-29] MEDS ORDERED: Lactated Ringers 1,000 ML IV SCH (12:00)
--- NOTE | 2017-12-29 14:00 | CT ---
CT abdomen and pelvis. Indication: Abdominal pain. Total DLP 1536 comparison: 10/08/2017. Findings: Lung bases are clear. Fatty infiltration of the liver is advanced and appears similar. Gall stone. Pancreas within normal limits. Spleen within normal limits. Bilateral adrenal glands are withi n normal limits. Punctate nonobstructing stone right kidney. No hydroureter. No hydronephrosis. Tiny calcifications deep within the pelvis do appear anterior to the right distal ureter. No hydronephrosi s left kidney. No hydroureter. No bladder stones. Postoperative changes Drew-en-Y gastrojejunostomy. There is slight thickening at the gastric pouch wh ich may be postsurgical only. The Drew limb is nondilated. There are a few foci of air at the surgica l line at the excluded stomach. Difficult to tell if this is intraperitoneal free air. The stomach is nondilated. The pancreaticobiliary limb is nondilated. The jejunal jejunal anastomosis is nondilated . Sigmoid diverticulosis without evidence for diverticulitis. Normal appendix right lower quadrant. T he terminal ileum is within normal limits. Vague hypodensity within the right kidney inferior pole. This is indeterminant. This could potentiall y indicate a cyst but should be confirmed with nonemergent ultrasound follow-up. No acute osseous abn ormality. Fat filled ventral hernia within the pelvis. Impression: 1. No evidence for obstruction. No focal fluid collection. 2. A few foci of air at the gastric pouch and excluded stomach. Difficult to exclude free air. It is minimal. No focal fluid collection. Recommend clinical follow-up is at least. Findings discussed with Dr. Herrera.
[2017-12-29] MEDS ORDERED: MVI, Adult with Vitamin K 10 ML, Thiamine 200 MG, Chromium/Copper/Mang/Selen/Zn 1 ML in... IV ONE ×4 (14:20)
[2017-12-29 16:12] VITALS: BP 130/81
== END 2017-12-29 16:13 | disposition critical access hospital (66) ==
LOC: JP.ED 10:24
DX: E86.0 Dehydration (principal); E11.22 Type 2 diabetes mellitus with diabetic chronic kidney disease; E78.00 Pure hypercholesterolemia, unspecified; N18.3 Chronic kidney disease, stage 3 (moderate); E66.9 Obesity, unspecified; Z88.5 Allergy status to narcotic agent; Z88.8 Allergy status to other drugs, medicaments and biological substances; Z79.899 Other long term (current) drug therapy; Z79.4 Long term (current) use of insulin; Z87.891 Personal history of nicotine dependence; Z98.84 Bariatric surgery status; Z88.1 Allergy status to other antibiotic agents
CPT/HCPCS: 36415; 71045; 74176; 80053; 81001; 82962; 83605; 85025; 87086; 93005; 96361; 96365; 96368; 99285; A9270; J2185; J3411; J7040; J7050; J7120

== ENCOUNTER 2018-01-09 14:48 | Emergency (ER) | payer MEDICAID ==
[2018-01-09 15:09] VITALS: BP 123/71
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
== END 2018-01-09 17:17 | disposition home or self-care (01) ==
LOC: JP.ED 14:48
DX: D64.9 Anemia, unspecified (principal); N28.9 Disorder of kidney and ureter, unspecified; Z98.84 Bariatric surgery status; E86.0 Dehydration; E11.9 Type 2 diabetes mellitus without complications; E66.9 Obesity, unspecified; J45.909 Unspecified asthma, uncomplicated; Z88.5 Allergy status to narcotic agent; Z88.1 Allergy status to other antibiotic agents; Z88.8 Allergy status to other drugs, medicaments and biological substances; Z79.899 Other long term (current) drug therapy; Z87.891 Personal history of nicotine dependence
CPT/HCPCS: 36415; 80053; 80305; 81001; 84443; 85025; 86140; 99284

== ENCOUNTER 2018-04-02 00:10 | Emergency (ER) | payer MEDICAID ==
[2018-04-02 00:34] VITALS: BP 151/75
[2018-04-02] MEDS ORDERED: Ketorolac 60 MG/2 ML SDV IM ONE (00:39)
--- NOTE | 2018-04-02 00:41 | EDM.PDOC ---
ED HPI GENERAL MEDICAL PROBLEM - General Chief Complaint: Genitourinary Problem Stated Complaint: KIDNEY STONES Time Seen by Provider: 04/02/18 00:25 Source of Information: Reports: Patient History Limitations: Reports: No Limitations - History of Present Illness INITIAL COMMENTS - FREE TEXT/NARRATIVE: 42-year-old female with a history of nephrolithiasis developed right flank pain now radiating around to the right lower abdomen and suprapubic area over the past 6 hours. She took an oxycodone and tramadol, needed provided any relief. She has no dysuria, fevers or chills, shortness of breath or chest pain. Some nausea but no vomiting. Onset: Sudden Severity: Moderate Associated Symptoms: Reports: No Other Symptoms back pain Pain Score (Numeric/FACES): 10 - Related Data Allergies Allergy/AdvReac Type Severity Reaction Status Date / Time azithromycin [From Zithromax] Allergy Rash Verified 04/02/18 00:24 codeine Allergy Rash Verified 04/02/18 00:24 Uvbzwwa-Nmd-Rmn Reductase AdvReac Muscle Verified 04/02/18 00:24 Inhibitor Aches moth balls Allergy Rash Uncoded 04/02/18 00:24 Home Meds: Home Meds Losartan [Cozaar] 50 mg PO DAILY 04/30/14 [History] Fluocinonide [Lidex 0.05% Top Soln] 0 ml TOP BID PRN 12/18/15 [History] Pregabalin [Lyrica] 150 mg PO BID 10/22/16 [History] Triamcinolone Acetonide [Kenalog 0.1% Crm] 1 applic TOP BID 01/11/17 [History] metroNIDAZOLE [Metrocream] 1 applic TP BID PRN 01/11/17 [History] Calcium Citrate/Vitamin D3 [Calcium Citrate - Vit D Caplet] 1 tab PO BID [History] Cyanocobalamin (Vitamin B-12) [Vitamin B-12] 1,000 mcg SL DAILY 12/19/17 [ History] Dulaglutide [Trulicity] 1.5 mg SQ WEEKLY 12/19/17 [History] Escitalopram Oxalate [Lexapro] 20 mg PO DAILY 12/19/17 [History] Multivitamins [Childrens Chewable Vitamin] 1 tab PO BID 12/19/17 [History] traMADol HCl [Tramadol HCl] 50 mg PO TID PRN 12/19/17 [History] Past Medical History - Past Health History Medical/Surgical History: Denies Medical/Surgical History HEENT History: Reports: Other (See Below) Other HEENT History: conjuctivitis in left eye, right eye injury in 2013 Cardiovascular History: Reports: High Cholesterol Respiratory History: Reports: Asthma Genitourinary History: Reports: Renal Calculus, Renal Disease, UTI, Recurrent Other Genitourinary History: stage III kidney disease 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: Dysfunctional Uterine Bleeding, Endometrial Ablation, Musculoskeletal History: Reports: Arthritis, Fibromyalgia Neurological History: Reports: Headaches, Chronic Psychiatric History: Reports: Anxiety, Depression, Mood Swings, Panic Attack Endocrine/Metabolic History: Reports: Diabetes, Type II, Obesity/BMI 30+ Hematologic History: Reports: Anemia Dermatologic History: Reports: Psoriasis, Venous Stasis Dermatitis - Infectious Disease History Infectious Disease History: Reports: Chicken Pox - Past Surgical History HEENT Surgical History: Reports: None, Oral Surgery GI Surgical History: Reports: Bariatric Procedure Female Surgical History: Reports: Other (See Below) Other Female Surgeries/Procedures: ureter valve reconstruction, essure Social & Family History - Family History Family Medical History: Noncontributory - Tobacco Use Smoking Status *Q: Current Every Day Smoker Years of Tobacco use: 30 Packs/Tins Daily: 0.5 - Caffeine Use Caffeine Use: Reports: None - Recreational Drug Use Recreational Drug Use: No ED ROS GENERAL - Review of Systems Review Of Systems: See Below Constitutional: Denies: Fever, Chills Respiratory: Denies: Shortness of Breath, Cough Cardiovascular: Denies: Chest Pain GI/Abdominal: Reports: Abdominal Pain, Nausea. Denies: Diarrhea, Vomiting : Reports: Flank Pain. Denies: Dysuria Skin: Reports: No Symptoms ED EXAM, GENERAL - Physical Exam Exam: See Below Exam Limited By: No Limitations General Appearance: Alert, Moderate Distress Respiratory/Chest: No Respiratory Distress Cardiovascular: Regular Rate, Rhythm GI/Abdominal: Soft, Tender (Reacts with some tenderness to palpation in the right upper quadrant and suprapubic areas but no guarding) Neurological: Alert, Oriented Psychiatric: Anxious Skin Exam: Warm, Dry Course - Vital Signs Last Recorded V/S: Last Vital Signs Temp 99.0 F 04/02/18 00:34 Pulse 80 04/02/18 00:34 Resp 18 04/02/18 00:34 BP 151/75 H 04/02/18 00:34 Pulse Ox 98 04/02/18 00:34 - Orders/Labs/Meds Orders: Active Orders 24 hr Category Date Time Status Abdomen Pelvis wo Cont [CT] Stat Exams 04/02/18 00:39 Taken Labs: Laboratory Tests 04/02/18 Range/Units 00:35 Urine Color Yellow Urine Appearance Cloudy Urine pH 5.0 (4.5-8.0) Ur Specific [place] 1.015 (1.008-1.030) Urine Protein 500 H (NEGATIVE) mg/dL Urine Glucose (UA) Normal (NEGATIVE) mg/dL Urine Ketones Negative (NEGATIVE) mg/dL Urine Occult Blood Large (NEGATIVE) Urine Nitrite Positive H (NEGATIVE) Urine Bilirubin Negative (NEGATIVE) Urine Urobilinogen Normal (NORMAL) mg/dL Ur Leukocyte Esterase Large (NEGATIVE) Urine RBC 10-20 H (0-5) Urine WBC >100 H (0-5) Ur Epithelial Cells Few Amorphous Sediment Not seen Urine Bacteria Many Urine Mucus Not seen Meds: Medications Discontinued Medications Generic Name Dose Route Start Last Admin Trade Name Freq PRN Reason Stop Dose Admin Ketorolac Tromethamine 60 mg 04/02/18 00:39 04/02/18 00:45 Toradol IM 04/02/18 00:40 60 mg ONETIME ONE Administration - Re-Assessments/Exams Free Text/Narrative Re-Assessment/Exam: 04/02/18 00:41 A UA was obtained, 60 mg of IM Toradol was given and the patient was sent back for a CT of her abdomen and pelvis without contrast. 04/02/18 01:42 Toradol helped but the patient continued to be fairly uncomfortable. UA was nitrite positive, WBCs and bacteria so culture was initiated. CT confirmed hydronephrosis on the right side all the way to the bladder, but no obvious stone present. She was given additional doses of ketorolac, 10 oxycodone, and started on Bactrim DS pending culture. She'll return in the next 24-48 hours if not improving. Departure - Departure Time of Disposition: 01:55 Disposition: Home, Self-Care 01 Condition: Fair Clinical Impression: UTI, Urinary tract infectious disease, Renal colic on right side - Discharge Information Instructions: Renal Colic, [id number] Referrals: PCP,None [Primary Care Provider] - Forms: ED Department Discharge Care Plan Goals: Take one ketorolac every 6 hours if you continue to have pain. Use oxycodone for extra pain control if needed. Bactrim DS twice daily for at least 7 days. Return any time if worsening such as fever, uncontrolled pain, or vomiting the medication. - My Orders Last 24 Hours: My Active Orders 04/02/18 00:39 Abdomen Pelvis wo Cont [CT] Stat - Assessment/Plan Last 24 Hours: My Active Orders 04/02/18 00:39 Abdomen Pelvis wo Cont [CT] Stat
== END 2018-04-02 01:55 | disposition home or self-care (01) ==
LOC: JP.ED 00:10
DX: N39.0 Urinary tract infection, site not specified (principal)
CPT/HCPCS: 74176; 81001; 96372; 99284; J1885

== ENCOUNTER 2018-11-20 10:43 | Emergency (ER) | payer MEDICAID ==
[2018-11-20 11:04] VITALS: BP 146/77
[2018-11-20] MEDS ORDERED: Albuterol 0.083% 2.5 MG/3 ML Neb Soln NEB ONE (11:09)
[2018-11-20] MEDS ORDERED: Sodium Chloride 0.9% 1,000 ML IV SCH ×2 (11:45→12:45)
--- NOTE | 2018-11-20 12:23 | CRLCR ---
INDICATION: SOB, COUGH INDICATION: Shortness of breath. Cough. TECHNIQUE: Chest 2 views. COMPARISON: None FINDINGS: Cardiovascular and mediastinum: Heart size and vasculature are normal in caliber and appearance. Mediastinum is within normal limits. Lungs and pleural spaces: Lungs are clear. No sign of infiltrate or mass. No sign of pleural effusion. No pneumothorax. Bones and soft tissues: No significant findings. IMPRESSION: Lungs are clear. Dictated by Stef Judd MD @ 11/20/2018 12:22:35 PM Dictated by: Stef Judd MD @ 11/20/2018 12:22:44 (Electronically Signed)
--- NOTE | 2018-11-20 12:32 | EDM.PDOC ---
ED HPI GENERAL MEDICAL PROBLEM - General Chief Complaint: Fever Stated Complaint: sob Time Seen by Provider: 11/20/18 12:26 Source of Information: Reports: Patient History Limitations: Reports: No Limitations - History of Present Illness INITIAL COMMENTS - FREE TEXT/NARRATIVE: pt has known influ a and she has been ill for about 1 week. She feels like she is not getting alot better. She is coughing up colored mucous. She still has hjad a low grade temp. She has ear pain. She is eating and drinking fair. Onset: Other ( started about 1 week ago. ) Duration: Hour(s): Location: Reports: Chest, Other ( total body pain. ) Associated Symptoms: Reports: Cough, Fever/Chills, Shortness of Breath - Related Data Allergies Allergy/AdvReac Type Severity Reaction Status Date / Time azithromycin [From Zithromax] Allergy Rash Verified 11/14/18 15:25 codeine Allergy Rash Verified 11/14/18 15:25 Fagjaeg-Rlw-Lcb Reductase AdvReac Muscle Verified 11/14/18 15:25 Inhibitor Aches moth balls Allergy Rash Uncoded 11/14/18 15:25 Home Meds: Home Meds Losartan [Cozaar] 25 mg PO DAILY 04/30/14 [History] Fluocinonide [Lidex 0.05% Top Soln] 0 ml TOP BID PRN 12/18/15 [History] Pregabalin [Lyrica] 225 mg PO BID 10/22/16 [History] Calcium Citrate/Vitamin D3 [Calcium Citrate - Vit D Caplet] 1 tab PO BID [History] Cyanocobalamin (Vitamin B-12) [Vitamin B-12] 1,000 mcg SL DAILY 12/19/17 [ History] Multivitamins [Childrens Chewable Vitamin] 1 tab PO BID 12/19/17 [History] Ammonium Lactate [Amlactin 12% Lotion] 1 applic TOP BID 11/14/18 [History] Cholecalciferol (Vitamin D3) [Vitamin D3] 3,000 units PO DAILY 11/14/18 [History ] Cyclobenzaprine HCl 5 mg PO TID PRN 11/14/18 [History] DULoxetine [Cymbalta] 120 mg PO DAILY 11/14/18 [History] Oseltamivir [Tamiflu] 75 mg PO BID 02/27/19 [History] Polyethylene Glycol 3350 17 gm PO DAILY PRN 11/14/18 [History] Ranitidine HCl [Zantac] 150 mg PO BID 11/14/18 [History] Zinc Gluconate [Zinc] 50 mg PO DAILY 11/14/18 [History] diazePAM [Valium] 10 mg PO DAILY PRN 11/14/18 [History] Past Medical History - Past Health History Medical/Surgical History: Denies Medical/Surgical History HEENT History: Reports: Other (See Below) Other HEENT History: conjuctivitis in left eye, right eye injury in 2013 Cardiovascular History: Reports: High Cholesterol Respiratory History: Reports: Asthma Genitourinary History: Reports: Renal Calculus, Renal Disease, UTI, Recurrent Other Genitourinary History: stage III kidney disease [employer]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 History: Reports: Dysfunctional Uterine Bleeding, Endometrial Ablation, Musculoskeletal History: Reports: Arthritis, Fibromyalgia Neurological History: Reports: Headaches, Chronic Psychiatric History: Reports: Anxiety, Depression, Mood Swings, Panic Attack Endocrine/Metabolic History: Reports: Diabetes, Type II, Obesity/BMI 30+ Hematologic History: Reports: Anemia Dermatologic History: Reports: Psoriasis, Venous Stasis Dermatitis - Infectious Disease History Infectious Disease History: Reports: Chicken Pox - Past Surgical History HEENT Surgical History: Reports: None, Oral Surgery GI Surgical History: Reports: Bariatric Procedure Female Surgical History: Reports: Other (See Below) Other Female Surgeries/Procedures: ureter valve reconstruction, essure Social & Family History - Family History Family Medical History: Noncontributory - Tobacco Use Smoking Status *Q: Current Every Day Smoker Years of Tobacco use: 20 Packs/Tins Daily: 0.5 - Caffeine Use Caffeine Use: Reports: None ED ROS GENERAL - Review of Systems Review Of Systems: See Below Constitutional: Reports: Fever, Weakness, Decreased Appetite HEENT: Reports: Other ( Pt is having bilateral ear pain , more on the left. ) Respiratory: Reports: Shortness of Breath, Cough Cardiovascular: Reports: No Symptoms Endocrine: Reports: No Symptoms GI/Abdominal: Reports: No Symptoms : Reports: No Symptoms Musculoskeletal: Reports: Other (muscle pain every where. ) Skin: Reports: No Symptoms Neurological: Reports: No Symptoms ED EXAM, GENERAL - Physical Exam Exam: See Below Free Text/Narrative:: pt arrived with acute pain in her ears, sob and a cough with greenish mucous. She has still been running fevers. Exam Limited By: No Limitations General Appearance: Alert, Anxious, Mild Distress Ears: Other ( both ears have fluid behind the drum and the left drum is quite red. ) Nose: Normal Inspection Throat/Mouth: Normal Inspection Head: Atraumatic Neck: Normal Inspection Respiratory/Chest: Other ( Pt has some wheezing present. Her o2 sats are good. ) Cardiovascular: Regular Rate, Rhythm GI/Abdominal: Soft, Non-Tender (Female) Exam: Deferred Rectal (Female) Exam: Deferred Back Exam: Normal Inspection Extremities: Normal Inspection Neurological: Alert, Oriented, Normal Cognition, Other (pt is not a good historian . She states that she is not having trouble answering questions. ) Psychiatric: Flat Affect Course - Vital Signs Last Recorded V/S: Last Vital Signs Temp 37.2 C 11/20/18 11:03 Pulse 53 L 11/20/18 11:03 Resp 16 11/20/18 11:03 BP 146/77 H 11/20/18 11:03 Pulse Ox 97 11/20/18 11:03 Orthostatic Blood Pressure [ 121/82 Standing] Orthostatic Blood Pressure [ 147/76 Sitting] Orthostatic Blood Pressure [ 148/73 Supine] - Orders/Labs/Meds Labs: Laboratory Tests 11/20/18 11/20/18 11/20/18 Range/Units 11:12 11:12 12:52 WBC 5.8 (4.5-11.0) K/uL RBC 4.29 (3.30-5.50) M/uL Hgb 12.6 (12.0-15.0) g/dL Hct 39.3 (36.0-48.0) % MCV 92 (80-98) fL MCH 29 (27-31) pg MCHC 32 (32-36) % Plt Count 244 (150-400) K/uL Neut % (Auto) 67 H (36-66) % Lymph % (Auto) 22 L (24-44) % Stone % (Auto) 9 H (2-6) % Eos % (Auto) 2 (2-4) % Baso % (Auto) 0 (0-1) % Sodium 143 (140-148) mmol/L Potassium 3.7 (3.6-5.2) mmol/L Chloride 105 (100-108) mmol/L Carbon Dioxide 27 (21-32) mmol/L Anion Gap 11.0 (5.0-14.0) mmol/L BUN 11 (7-18) mg/dL Creatinine 1.0 (0.6-1.0) mg/dL Est Cr Clr Drug Dosing 69.09 mL/min Estimated GFR (MDRD) 60 (>60) Glucose 119 H (74-106) mg/dL Calcium 9.3 (8.5-10.1) mg/dL Total Bilirubin 0.4 (0.2-1.0) mg/dL AST 16 (15-37) U/L ALT 22 (12-78) U/L Alkaline Phosphatase 79 (46-116) U/L Total Protein 7.1 (6.4-8.2) g/dL Albumin 3.2 L (3.4-5.0) g/dL Globulin 3.9 H (2.3-3.5) g/dL Albumin/Globulin Ratio 0.8 L (1.2-2.2) Urine Color Yellow Urine Appearance Slightly cloudy Urine pH 6.0 (4.5-8.0) Ur Specific Lackey 1.010 (1.008-1.030) Urine Protein 30 H (NEGATIVE) mg/dL Urine Glucose (UA) Normal (NEGATIVE) mg/dL Urine Ketones 50 H (NEGATIVE) mg/dL Urine Occult Blood Trace (NEGATIVE) Urine Nitrite Negative (NEGATIVE) Urine Bilirubin Negative (NEGATIVE) Urine Urobilinogen Normal (NORMAL) mg/dL Ur Leukocyte Esterase Negative (NEGATIVE) Urine RBC 0-5 (0-5) Urine WBC 0-5 (0-5) Ur Epithelial Cells Few Amorphous Sediment Not seen Urine Bacteria Not seen Urine Mucus Moderate Meds: Medications Discontinued Medications Generic Name Dose Route Start Last Admin Trade Name Freq PRN Reason Stop Dose Admin Albuterol 2.5 mg 11/20/18 11:09 11/20/18 11:14 Proventil Neb Soln NEB 11/20/18 11:10 2.5 mg ONETIME ONE Administration Sodium Chloride 1,000 mls @ 999 mls/hr 11/20/18 11:45 11/20/18 12:01 Normal Saline IV 999 mls/hr ASDIRECTED ARELI Administration Sodium Chloride 1,000 mls @ 999 mls/hr 11/20/18 12:45 11/20/18 13:03 Normal Saline IV 999 mls/hr ASDIRECTED [facility] Administration - Re-Assessments/Exams Free Text/Narrative Re-Assessment/Exam: 11/20/18 12:33 Pt will be given 2 liters of fluid. She was given torodol 30 mg iv. She will be given a diabetic Departure - Departure Time of Disposition: 14:10 Disposition: Home, Self-Care 01 Condition: Fair Clinical Impression: Influenza A, Serous otitis media, Dehydration, Bronchitis - Discharge Information Instructions: Influenza, Adult, [id number], Otitis Media, Adult, [id number] , Dehydration, Adult, Jswb-[id number], Upper Respiratory Infection, Adult, Easy-to- Read Referrals: PCP,None [Primary Care Provider] - Forms: ED Department Discharge Care Plan Goals: Amoxicillin 500mg tid for ear infection, push fluids, tylenol and motrin for body aches, albuterol inhaler 2 puff tid for wheezing.
== END 2018-11-20 14:05 | disposition home or self-care (01) ==
LOC: JP.ED 10:43
DX: J10.1 Influenza due to other identified influenza virus with other respiratory manifestations (principal); H65.93 Unspecified nonsuppurative otitis media, bilateral; E86.0 Dehydration; J40 Bronchitis, not specified as acute or chronic; E78.00 Pure hypercholesterolemia, unspecified; F41.9 Anxiety disorder, unspecified; F32.9 Major depressive disorder, single episode, unspecified; N18.3 Chronic kidney disease, stage 3 (moderate); E11.22 Type 2 diabetes mellitus with diabetic chronic kidney disease; F17.210 Nicotine dependence, cigarettes, uncomplicated; Z88.1 Allergy status to other antibiotic agents; Z88.5 Allergy status to narcotic agent; Z88.8 Allergy status to other drugs, medicaments and biological substances; Z79.899 Other long term (current) drug therapy
CPT/HCPCS: 36415; 71046; 80053; 81001; 85025; 94640; 96360; 96361; 99285; J7030

== ENCOUNTER 2019-03-20 09:49 | Emergency (ER) | payer MEDICAID ==
[2019-03-20] MEDS ORDERED: Sodium Chloride 0.9% 1,000 ML IV SCH (11:30)
--- NOTE | 2019-03-20 11:53 | EDM.PDOC ---
ED HPI GENERAL MEDICAL PROBLEM - General Chief Complaint: General Stated Complaint: KIDNEY STONE, LIGHTED HEADED, BLURRY VISION Time Seen by Provider: 03/20/19 10:59 Source of Information: Reports: Patient History Limitations: Reports: No Limitations - History of Present Illness INITIAL COMMENTS - FREE TEXT/NARRATIVE: 43 yo female presents from the clinic with right flank pain. Pain was very severe at 0200 this AM she did take 600 mg of Ibuprofen at that time and pain has improved. Fever max last night of 102. she does have hx of kidney stones. over the last 2 weeks she has had increase in lightheadedness. worse over the last 3 days with "foggy head" She has had many episodes of near syncope over the last few months. 1 year ago pt had gastric bipass and has lost 100# - Related Data Allergies Allergy/AdvReac Type Severity Reaction Status Date / Time azithromycin [From Zithromax] Allergy Rash Verified 03/20/19 11:19 codeine Allergy Rash Verified 03/20/19 11:19 Esgieit-Ptm-Emw Reductase AdvReac Muscle Verified 03/20/19 11:19 Inhibitor Aches moth balls Allergy Rash Uncoded 03/20/19 11:19 Home Meds: Home Meds Losartan [Cozaar] 25 mg PO DAILY 04/30/14 [History] Fluocinonide [Lidex 0.05% Top Soln] 0 ml TOP BID PRN 12/18/15 [History] Pregabalin [Lyrica] 225 mg PO BID 10/22/16 [History] Calcium Citrate/Vitamin D3 [Calcium Citrate - Vit D Caplet] 1 tab PO BID [History] Cyanocobalamin (Vitamin B-12) [Vitamin B-12] 1,000 mcg SL DAILY 12/19/17 [ History] Multivitamins [Childrens Chewable Vitamin] 1 tab PO BID 12/19/17 [History] Ammonium Lactate [Amlactin 12% Lotion] 1 applic TOP BID 11/14/18 [History] Cholecalciferol (Vitamin D3) [Vitamin D3] 3,000 units PO DAILY 11/14/18 [History ] Cyclobenzaprine HCl 5 mg PO TID PRN 11/14/18 [History] Zinc Gluconate [Zinc] 50 mg PO DAILY 11/14/18 [History] diazePAM [Valium] 10 mg PO DAILY PRN 11/14/18 [History] Past Medical History - Past Health History Medical/Surgical History: Denies Medical/Surgical History HEENT History: Reports: Other (See Below) Other HEENT History: conjuctivitis in left eye, right eye injury in 2013 Cardiovascular History: Reports: High Cholesterol Respiratory History: Reports: Asthma Genitourinary History: Reports: Renal Calculus, Renal Disease, UTI, Recurrent Other Genitourinary History: stage III kidney 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: Dysfunctional Uterine Bleeding, Endometrial Ablation, Musculoskeletal History: Reports: Arthritis, Fibromyalgia Neurological History: Reports: Headaches, Chronic Psychiatric History: Reports: Anxiety, Depression, Mood Swings, Panic Attack Endocrine/Metabolic History: Reports: Diabetes, Type II, Obesity/BMI 30+ Hematologic History: Reports: Anemia Dermatologic History: Reports: Psoriasis, Venous Stasis Dermatitis - Infectious Disease History Infectious Disease History: Reports: Chicken Pox - Past Surgical History HEENT Surgical History: Reports: None, Oral Surgery GI Surgical History: Reports: Bariatric Procedure Female Surgical History: Reports: Other (See Below) Other Female Surgeries/Procedures: ureter valve reconstruction, essure Social & Family History - Family History Family Medical History: Noncontributory - Tobacco Use Smoking Status *Q: Current Every Day Smoker Years of Tobacco use: 30 Packs/Tins Daily: 1 - Caffeine Use Caffeine Use: Reports: Coffee - Recreational Drug Use Recreational Drug Use: No ED ROS GENERAL - Review of Systems Review Of Systems: See Below Constitutional: Reports: Fever, Chills, Fatigue HEENT: Denies: Sinus Problem Respiratory: Denies: Shortness of Breath, Wheezing Cardiovascular: Denies: Chest Pain : Reports: Flank Pain ED EXAM, GENERAL - Physical Exam Exam: See Below Exam Limited By: No Limitations General Appearance: Alert, WD/WN, No Apparent Distress Head: Atraumatic, Normocephalic Neck: Normal Inspection, Supple, Non-Tender, Full Range of Motion Respiratory/Chest: No Respiratory Distress, Lungs Clear, Normal Breath Sounds, No Accessory Muscle Use, Chest Non-Tender. No: Crackles, Rhonchi, Wheezing Cardiovascular: Regular Rate, Rhythm, No Murmur GI/Abdominal: Normal Bowel Sounds, Soft, Non-Tender, No Organomegaly, No Distention Back Exam: CVA Tenderness (R). No: CVA Tenderness (L) Neurological: Alert, Oriented, Normal Cognition Psychiatric: Normal Affect, Normal Mood Skin Exam: Warm, Dry, Intact Course - Vital Signs Last Recorded V/S: Last Vital Signs Temp 37.5 C 03/20/19 11:22 Pulse 58 L 03/20/19 12:00 Resp 16 03/20/19 11:22 BP 103/65 03/20/19 12:00 Pulse Ox 99 03/20/19 12:00 - Orders/Labs/Meds Orders: Active Orders 24 hr Category Date Time Status Sodium Chloride 0.9% [Normal Saline] 1,000 ml Med 03/20/19 11:30 Active IV ASDIRECTED Medication Orders Sodium Chloride (Normal Saline) 1,000 mls @ 999 mls/hr IV ASDIRECTED ARELI Labs: Laboratory Tests 03/20/19 03/20/19 03/20/19 Range/Units 11:39 11:39 11:39 WBC 13.2 H (4.5-11.0) K/uL RBC 3.84 (3.30-5.50) M/uL Hgb 12.0 (12.0-15.0) g/dL Hct 36.5 (36.0-48.0) % MCV 95 (80-98) fL MCH 31 (27-31) pg MCHC 33 (32-36) % Plt Count 174 (150-400) K/uL Neut % (Auto) 81 H (36-66) % Lymph % (Auto) 12 L (24-44) % Dickson % (Auto) 6 (2-6) % Eos % (Auto) 1 L (2-4) % Baso % (Auto) 0 (0-1) % Sodium 142 (140-148) mmol/L Potassium 3.3 L (3.6-5.2) mmol/L Chloride 107 (100-108) mmol/L Carbon Dioxide 27 (21-32) mmol/L Anion Gap 11.3 (5.0-14.0) mmol/L BUN 22 H D (7-18) mg/dL Creatinine 1.0 (0.6-1.0) mg/dL Est Cr Clr Drug Dosing 66.51 mL/min Estimated GFR (MDRD) 60 (>60) Glucose 98 (74-106) mg/dL Lactic Acid 1.1 (0.4-2.0) mmol/L Calcium 8.6 (8.5-10.1) mg/dL Meds: Medications Generic Name Dose Route Start Last Admin Trade Name Frejuan PRN Reason Stop Dose Admin Sodium Chloride 1,000 mls @ 999 mls/hr 03/20/19 11:30 Normal Saline IV ASDIRECTED ARELI Discontinued Medications Generic Name Dose Route Start Last Admin Trade Name Yao PRN Reason Stop Dose Admin Potassium Chloride 20 meq 03/20/19 12:15 Klor-Con M20 PO 03/20/19 12:16 ONETIME ONE - Re-Assessments/Exams Free Text/Narrative Re-Assessment/Exam: 03/20/19 12:25 after 2 attempts IV was unable to be obtained and pt then refused. She was able to drink fluids orally and has urinated one time since arriving in ER. UA from clinic was obtained and pt has many bacteria and 100+ WBC. Her blood showed WBC elevation at 13.2 without shift and lactic normal at 1.1. mildly low potassium with normal kidney function. I do believe that pts foggy head and near syncope is a combination of UTI and medication caused hypotension. She will be discharged on Bactrim DS and instructed to stop cozaar. Departure - Departure Time of Disposition: 12:29 Disposition: Home, Self-Care 01 Condition: Good Clinical Impression: UTI, Urinary tract infectious disease Hypotension Qualifiers: Hypotension type: other hypotension type Qualified Code(s): I95.89 - Other hypotension - Discharge Information *PRESCRIPTION DRUG MONITORING PROGRAM REVIEWED*: Not Applicable *COPY OF PRESCRIPTION DRUG MONITORING REPORT IN PATIENT TONY: Not Applicable Referrals: PCP,None [Primary Care Provider] - Forms: ED Department Discharge Additional Instructions: Bactrim DS twice daily for 5 days Stop Losartan follow-up with primary care in 48 hours if no improvement eat a potassium rich diet - apricots, potatoes, bananas - My Orders Last 24 Hours: My Active Orders 03/20/19 11:30 Sodium Chloride 0.9% [Normal Saline] 1,000 ml IV ASDIRECTED - Assessment/Plan Last 24 Hours: My Active Orders 03/20/19 11:30 Sodium Chloride 0.9% [Normal Saline] 1,000 ml IV ASDIRECTED
[2019-03-20 12:01] VITALS: BP 103/65; PULSE 58
[2019-03-20] MEDS ORDERED: Potassium Chloride 20 MEQ Tab.ER PO ONE (12:15)
== END 2019-03-20 12:45 | disposition home or self-care (01) ==
LOC: JP.ED 09:49
DX: N39.0 Urinary tract infection, site not specified (principal); I95.89 Other hypotension; E78.00 Pure hypercholesterolemia, unspecified; N18.3 Chronic kidney disease, stage 3 (moderate); F41.9 Anxiety disorder, unspecified; F32.9 Major depressive disorder, single episode, unspecified; E11.22 Type 2 diabetes mellitus with diabetic chronic kidney disease; F17.210 Nicotine dependence, cigarettes, uncomplicated; Z88.1 Allergy status to other antibiotic agents; Z87.442 Personal history of urinary calculi; Z88.5 Allergy status to narcotic agent; Z91.048 Other nonmedicinal substance allergy status; Z88.8 Allergy status to other drugs, medicaments and biological substances; Z79.899 Other long term (current) drug therapy
CPT/HCPCS: 36415; 80048; 83605; 85025; 99283

== ENCOUNTER 2019-05-20 16:11 | Emergency (ER) | payer MEDICAID ==
[2019-05-20 16:58] VITALS: BP 112/67
[2019-05-20] MEDS ORDERED: Lactated Ringers 1,000 ML IV ONE ×2 (17:19→18:29)
[2019-05-20] MEDS ORDERED: Sodium Chloride 0.9% 10 ML Syringe FLUSH PRN (17:19)
[2019-05-20] MEDS ORDERED: Ondansetron 4 MG/2 ML SDV IVPUSH ONE (17:22)
--- NOTE | 2019-05-20 17:29 | EDM.PDOC ---
ED HPI GENERAL MEDICAL PROBLEM - General Stated Complaint: UTI Time Seen by Provider: 05/20/19 17:00 Source of Information: Reports: Patient History Limitations: Reports: No Limitations - History of Present Illness INITIAL COMMENTS - FREE TEXT/NARRATIVE: 43 yo female present with right flank pain and concerns regarding dehydration and UTI. Patient is S/p Gastric bypass about 1 year ago and has had 2-3 bouts of dehydration and severe UTI in the last year. Patient presents today due to nausea, without vomiting, lightheadedness, right flank pain, general weakness and malaise. Patient has taken her routine medications/vitamins. Patient has not taken any medications for pain. Patient denies headache, sore throat or URI symptoms. Right Flank Pain Score (Numeric/FACES): 6 - Related Data Allergies Allergy/AdvReac Type Severity Reaction Status Date / Time azithromycin [From Zithromax] Allergy Rash Verified 05/20/19 17:28 codeine Allergy Rash Verified 05/20/19 17:28 [id number]-Lhx Reductase AdvReac Muscle Verified 05/20/19 17:28 Inhibitor Aches moth balls Allergy Rash Uncoded 03/20/19 11:19 Home Meds: Home Meds Losartan [Cozaar] 25 mg PO DAILY 04/30/14 [History] Fluocinonide [Lidex 0.05% Top Soln] 0 ml TOP BID PRN 12/18/15 [History] Pregabalin [Lyrica] 225 mg PO BID 10/22/16 [History] Calcium Citrate/Vitamin D3 [Calcium Citrate - Vit D Caplet] 1 tab PO BID [History] Cyanocobalamin (Vitamin B-12) [Vitamin B-12] 1,000 mcg SL DAILY 12/19/17 [ History] Multivitamins [Childrens Chewable Vitamin] 1 tab PO BID 12/19/17 [History] Ammonium Lactate [Amlactin 12% Lotion] 1 applic TOP BID 11/14/18 [History] Cholecalciferol (Vitamin D3) [Vitamin D3] 3,000 units PO DAILY 11/14/18 [History ] Cyclobenzaprine HCl 5 mg PO TID PRN 11/14/18 [History] Zinc Gluconate [Zinc] 50 mg PO DAILY 11/14/18 [History] diazePAM [Valium] 10 mg PO DAILY PRN 11/14/18 [History] Past Medical History - Past Health History Medical/Surgical History: Denies Medical/Surgical History HEENT History: Reports: Other (See Below) Other HEENT History: conjuctivitis in left eye, right eye injury in 2013 Cardiovascular History: Reports: High Cholesterol Respiratory History: Reports: Asthma Genitourinary History: Reports: Renal Calculus, Renal Disease, UTI, Recurrent Other Genitourinary History: stage III kidney disease 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 READER History: Reports: Dysfunctional Uterine Bleeding, Endometrial Ablation, Musculoskeletal History: Reports: Arthritis, Fibromyalgia Neurological History: Reports: Headaches, Chronic Psychiatric History: Reports: Anxiety, Depression, Mood Swings, Panic Attack Endocrine/Metabolic History: Reports: Diabetes, Type II, Obesity/BMI 30+ Hematologic History: Reports: Anemia Dermatologic History: Reports: Psoriasis, Venous Stasis Dermatitis - Infectious Disease History Infectious Disease History: Reports: Chicken Pox - Past Surgical History HEENT Surgical History: Reports: None, Oral Surgery GI Surgical History: Reports: Bariatric Procedure Female Surgical History: Reports: Other (See Below) Other Female Surgeries/Procedures: ureter valve reconstruction, essure Social & Family History - Family History Family Medical History: Noncontributory - Caffeine Use Caffeine Use: Reports: Coffee ED ROS GENERAL - Review of Systems Review Of Systems: ROS reveals no pertinent complaints other than HPI. ED EXAM, RENAL/ - Physical Exam Exam: See Below Exam Limited By: No Limitations General Appearance: Alert, WD/WN, Moderate Distress (right flank pain ) Eye Exam: Bilateral Eye: EOMI, PERRL Ears: Normal External Exam, Normal Canal, Hearing Grossly Normal Nose: Normal Inspection, Normal Mucosa, No Blood Throat/Mouth: Normal Inspection, Normal Lips, Normal Oropharynx, Normal Voice, No Airway Compromise, Other (mouth dry) Head: Normocephalic Neck: Normal Inspection, Supple, Non-Tender, Full Range of Motion Respiratory/Chest: No Respiratory Distress, Lungs Clear, Normal Breath Sounds, No Accessory Muscle Use, Chest Non-Tender Cardiovascular: Normal Peripheral Pulses, Regular Rate, Rhythm GI/Abdominal: Normal Bowel Sounds, Soft, Non-Tender (Female) Exam: Deferred Back Exam: Normal Inspection, Full Range of Motion (h/o renal concerns ), CVA Tenderness (R) Extremities: Normal Inspection, Normal Range of Motion, Non-Tender, Normal Capillary Refill, No Pedal Edema Neurological: Alert, Oriented, CN II-XII Intact, Normal Cognition, Normal Gait, Normal Reflexes, No Motor/Sensory Deficits Psychiatric: Normal Mood, Flat Affect Skin Exam: Warm, Dry, Intact, Normal Color, No Rash Course - Vital Signs Last Recorded V/S: Last Vital Signs Temp 36.8 C 05/20/19 17:27 Pulse 70 05/20/19 17:27 Resp 18 05/20/19 17:27 BP 112/67 05/20/19 17:27 Pulse Ox 95 05/20/19 17:27 - Orders/Labs/Meds Orders: Active Orders 24 hr Category Date Time Status Bladder Scan [RC] ASDIRECTED Care 05/20/19 17:29 Active Peripheral IV Care [RC] . DIRECTED Care 05/20/19 17:19 Active Sodium Chloride 0.9% [Saline Flush] Med 05/20/19 17:19 Active 10 ml FLUSH ASDIRECTED PRN Peripheral IV Insertion Adult [OM.PC] Urgent Oth 05/20/19 17:18 Ordered Medication Orders Sodium Chloride (Saline Flush) 10 ml FLUSH ASDIRECTED PRN PRN Reason: Keep Vein Open Last Admin: 05/20/19 18:02 Dose: 10 ml Labs: Laboratory Tests 05/20/19 05/20/19 05/20/19 Range/Units 17:36 17:36 17:36 WBC 7.4 (4.5-11.0) K/uL RBC 4.50 (3.30-5.50) M/uL Hgb 14.3 D (12.0-15.0) g/dL Hct 42.8 (36.0-48.0) % MCV 95 (80-98) fL MCH 32 H (27-31) pg MCHC 33 (32-36) % Plt Count 194 (150-400) K/uL Neut % (Auto) 67 H (36-66) % Lymph % (Auto) 22 L (24-44) % [place] % (Auto) 8 H (2-6) % Eos % (Auto) 3 (2-4) % Baso % (Auto) 0 (0-1) % Sodium 141 (140-148) mmol/L Potassium 3.9 (3.6-5.2) mmol/L Chloride 104 (100-108) mmol/L Carbon Dioxide 27 (21-32) mmol/L Anion Gap 10.5 (5.0-14.0) mmol/L BUN 23 H (7-18) mg/dL Creatinine 1.0 (0.6-1.0) mg/dL Est Cr Clr Drug Dosing 66.51 mL/min Estimated GFR (MDRD) 60 (>60) Glucose 110 H (74-106) mg/dL Calcium 9.5 (8.5-10.1) mg/dL Magnesium 1.7 L (1.8-2.4) mg/dL Total Bilirubin 0.4 (0.2-1.0) mg/dL AST 21 (15-37) U/L ALT 31 (12-78) U/L Alkaline Phosphatase 76 (46-116) U/L Total Protein 7.6 (6.4-8.2) g/dL Albumin 4.2 (3.4-5.0) g/dL Globulin 3.4 (2.3-3.5) g/dL Albumin/Globulin Ratio 1.2 (1.2-2.2) Urine Color (YELLOW) Urine Appearance (CLEAR) Urine pH (5.0-8.0) Ur Specific [place] (1.008-1.030) Urine Protein (NEGATIVE) mg/dL Urine Glucose (UA) (NEGATIVE) mg/dL Urine Ketones (NEGATIVE) mg/dL Urine Occult Blood (NEGATIVE) Urine Nitrite (NEGATIVE) Urine Bilirubin (NEGATIVE) Urine Urobilinogen (0.2-1.0) EU/dL Ur Leukocyte Esterase (NEGATIVE) Urine RBC (0-5) Urine WBC (0-5) Ur Epithelial Cells Amorphous Sediment Urine Bacteria Urine Mucus Urine Opiates Screen (NEGATIVE) Ur Oxycodone Screen (NEGATIVE) Urine Methadone Screen (NEGATIVE) Ur Propoxyphene Screen (NEGATIVE) Ur Barbiturates Screen (NEGATIVE) Ur Tricyclics Screen (NEGATIVE) Ur Phencyclidine Scrn (NEGATIVE) Ur Amphetamine Screen (NEGATIVE) U Methamphetamines Scrn (NEGATIVE) Urine MDMA Screen (NEGATIVE) U Benzodiazepines Scrn (NEGATIVE) U Cocaine Metab Screen (NEGATIVE) U Marijuana (THC) Screen (NEGATIVE) 05/20/19 05/20/19 Range/Units 17:50 17:56 WBC (4.5-11.0) K/uL RBC (3.30-5.50) M/uL Hgb (12.0-15.0) g/dL Hct (36.0-48.0) % MCV (80-98) fL MCH (27-31) pg MCHC (32-36) % Plt Count (150-400) K/uL Neut % (Auto) (36-66) % Lymph % (Auto) (24-44) % [place] % (Auto) (2-6) % Eos % (Auto) (2-4) % Baso % (Auto) (0-1) % Sodium (140-148) mmol/L Potassium (3.6-5.2) mmol/L Chloride (100-108) mmol/L Carbon Dioxide (21-32) mmol/L Anion Gap (5.0-14.0) mmol/L BUN (7-18) mg/dL Creatinine (0.6-1.0) mg/dL Est Cr Clr Drug Dosing mL/min Estimated GFR (MDRD) (>60) Glucose (74-106) mg/dL Calcium (8.5-10.1) mg/dL Magnesium (1.8-2.4) mg/dL Total Bilirubin (0.2-1.0) mg/dL AST (15-37) U/L ALT (12-78) U/L Alkaline Phosphatase (46-116) U/L Total Protein (6.4-8.2) g/dL Albumin (3.4-5.0) g/dL Globulin (2.3-3.5) g/dL Albumin/Globulin Ratio (1.2-2.2) Urine Color Yellow (YELLOW) Urine Appearance Clear (CLEAR) Urine pH 6.0 (5.0-8.0) Ur Specific [place] 1.025 (1.008-1.030) Urine Protein Negative (NEGATIVE) mg/dL Urine Glucose (UA) Normal (NEGATIVE) mg/dL Urine Ketones Negative (NEGATIVE) mg/dL Urine Occult Blood Negative (NEGATIVE) Urine Nitrite Negative (NEGATIVE) Urine Bilirubin Negative (NEGATIVE) Urine Urobilinogen 0.2 (0.2-1.0) EU/dL Ur Leukocyte Esterase Negative (NEGATIVE) Urine RBC 0-5 (0-5) Urine WBC 0-5 (0-5) Ur Epithelial Cells Rare Amorphous Sediment Not seen Urine Bacteria Few Urine Mucus Not seen Urine Opiates Screen Negative (NEGATIVE) Ur Oxycodone Screen Negative (NEGATIVE) Urine Methadone Screen Negative (NEGATIVE) Ur Propoxyphene Screen Negative (NEGATIVE) Ur Barbiturates Screen Negative (NEGATIVE) Ur Tricyclics Screen Negative (NEGATIVE) Ur Phencyclidine Scrn Negative (NEGATIVE) Ur Amphetamine Screen Negative (NEGATIVE) U Methamphetamines Scrn Negative (NEGATIVE) Urine MDMA Screen Negative (NEGATIVE) U Benzodiazepines Scrn Negative (NEGATIVE) U Cocaine Metab Screen Negative (NEGATIVE) U Marijuana (THC) Screen Negative (NEGATIVE) Meds: Medications Generic Name Dose Route Start Last Admin Trade Name Freq PRN Reason Stop Dose Admin Sodium Chloride 10 ml 05/20/19 17:19 05/20/19 18:02 Saline Flush FLUSH 10 ml ASDIRECTED PRN Administration Keep Vein Open Discontinued Medications Generic Name Dose Route Start Last Admin Trade Name Freq PRN Reason Stop Dose Admin Cyclobenzaprine HCl 10 mg 05/20/19 18:32 05/20/19 18:48 Flexeril PO 05/20/19 18:33 10 mg ONETIME ONE Administration Lactated Ringer's 1,000 mls @ 1,000 mls/hr 05/20/19 17:19 05/20/19 18:02 Ringers, Lactated IV 05/20/19 18:18 1,000 mls/hr BOLUS ONE Administration Lactated Ringer's 1,000 mls @ 1,000 mls/hr 05/20/19 18:29 Ringers, Lactated IV 05/20/19 19:28 BOLUS ONE Ibuprofen 600 mg 05/20/19 18:32 05/20/19 18:48 Motrin PO 05/20/19 18:33 600 mg ONETIME ONE Administration Ondansetron HCl 4 mg 05/20/19 17:22 05/20/19 18:02 Zofran IVPUSH 05/20/19 17:23 4 mg ONETIME ONE Administration - Re-Assessments/Exams Free Text/Narrative Re-Assessment/Exam: Previous EKG reviewed NSR with QTc less than 450. Zofran 4mg given for nausea IV. LR bolus ordered. Previous UC reviewed, mixed nestor and Staph bacteria noted. 05/20/19 17:28 Patient is feeling much improved. She is updated that her blood work and urine do not show any concerning findings. Magnesium is slightly low (consider supplement with foods high in Magnesium. Patient states nausea is better and now hungry. Patient does not feel another liter of fluids in necessary this evening. 05/20/19 18:33 Departure - Departure Time of Disposition: 19:16 Disposition: Home, Self-Care 01 Clinical Impression: Dehydration, mild, Flank pain - Discharge Information Instructions: Dysuria, Rehydration, Adult, Flank Pain, Adult, Dehydration, Adult, Musculoskeletal Pain Referrals: Miranda Castillo PA-C [Primary Care Provider] - Additional Instructions: 1. Increase fluid intake. 2. Consider magnesium supplement if concerns. 3. Zofran 4 mg ODT prn nausea to prevent vomiting, nausea and further dehydration. 4. Tylenol or Ibuprofen for musculoskeletal flank pain. 5. Call PCP for recheck in 1 week if not improving sooner if symptoms worsen or new concerns. - My Orders Last 24 Hours: My Active Orders 05/20/19 17:18 Peripheral IV Insertion Adult [OM.PC] Urgent 05/20/19 17:19 Peripheral IV Care [RC] . DIRECTED Sodium Chloride 0.9% [Saline Flush] 10 ml FLUSH ASDIRECTED PRN 05/20/19 17:29 Bladder Scan [RC] ASDIRECTED - Assessment/Plan Last 24 Hours: My Active Orders 05/20/19 17:18 Peripheral IV Insertion Adult [OM.PC] Urgent 05/20/19 17:19 Peripheral IV Care [RC] . DIRECTED Sodium Chloride 0.9% [Saline Flush] 10 ml FLUSH ASDIRECTED PRN 05/20/19 17:29 Bladder Scan [RC] ASDIRECTED
[2019-05-20] MEDS ORDERED: Ibuprofen 600 MG Tab PO ONE (18:32)
[2019-05-20] MEDS ORDERED: Cyclobenzaprine 10 MG Tab PO ONE (18:32)
== END 2019-05-20 19:32 | disposition home or self-care (01) ==
LOC: JP.ED 16:11
DX: E86.0 Dehydration (principal); R10.9 Unspecified abdominal pain; E11.22 Type 2 diabetes mellitus with diabetic chronic kidney disease; N18.3 Chronic kidney disease, stage 3 (moderate); Z88.1 Allergy status to other antibiotic agents; Z88.5 Allergy status to narcotic agent; Z91.048 Other nonmedicinal substance allergy status; Z88.8 Allergy status to other drugs, medicaments and biological substances; Z79.899 Other long term (current) drug therapy; Z98.84 Bariatric surgery status
CPT/HCPCS: 36415; 51798; 80053; 80305; 81001; 83735; 85025; 96361; 96374; 99284; A9270; J2405; J7120

== ENCOUNTER 2019-11-16 12:55 | Emergency (ER) | payer MEDICAID, OTHER ==
[2019-11-16 13:07] VITALS: BP 130/76; PULSE 66
--- NOTE | 2019-11-16 13:43 | EDM.PDOC ---
ED HPI GENERAL MEDICAL PROBLEM - General Chief Complaint: Laceration Stated Complaint: LACERATION ON THE FOREHEAD Time Seen by Provider: 11/16/19 13:43 - History of Present Illness INITIAL COMMENTS - FREE TEXT/NARRATIVE: 44 years old female patient presented with a chief complaint of head injury. Patient was carrying some ice bags at work and bent forward to but it down and hit her forehead to the corner of the counter. Denies any loss of consciousness. No falls. Complaining of some headache but no neck pain or back pain. Denies any visual changes. Denies any nausea or vomiting. Denies any focal weakness or numbness anywhere. Denies any neck stiffness. Denies any chest pain shortness breath. Denies any abdominal pain diarrhea or constipation. Denies any urinary symptom. Bleeding controlled. headache Pain Score (Numeric/FACES): 7 - Related Data Allergies Allergy/AdvReac Type Severity Reaction Status Date / Time azithromycin [From Zithromax] Allergy Rash Verified 11/16/19 13:06 codeine Allergy Rash Verified 11/16/19 13:06 [id number]-Jmw Reductase AdvReac Muscle Verified 11/16/19 13:06 Inhibitor Aches moth balls Allergy Rash Uncoded 11/16/19 13:06 Home Meds: Home Meds Fluocinonide [Lidex 0.05% Top Soln] 0 ml TOP BID PRN 12/18/15 [History] Pregabalin [Lyrica] 225 mg PO BID 10/22/16 [History] Calcium Citrate/Vitamin D3 [Calcium Citrate - Vit D Caplet] 1 tab PO BID [History] Multivitamins [Childrens Chewable Vitamin] 1 tab PO BID 12/19/17 [History] Cholecalciferol (Vitamin D3) [Vitamin D3] 3,000 units PO DAILY 11/14/18 [History ] Cyclobenzaprine HCl 5 mg PO TID PRN 11/14/18 [History] Zinc Gluconate [Zinc] 50 mg PO DAILY 11/14/18 [History] DULoxetine [Cymbalta] 90 mg PO DAILY 11/16/19 [History] Pregabalin 225 mg PO DAILY 11/16/19 [History] Rizatriptan Benzoate [Rizatriptan] 5 mg PO DAILY 11/16/19 [History] Past Medical History - Past Health History Medical/Surgical History: Denies Medical/Surgical History HEENT History: Reports: Other (See Below) Other HEENT History: conjuctivitis in left eye, right eye injury in 2014 Cardiovascular History: Reports: High Cholesterol Respiratory History: Reports: Asthma Genitourinary History: Reports: Renal Calculus, Renal Disease, UTI, Recurrent Other Genitourinary History: stage III kidney disease 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 BOSS History: Reports: Dysfunctional Uterine Bleeding, Endometrial Ablation, Musculoskeletal History: Reports: Arthritis, Fibromyalgia Neurological History: Reports: Headaches, Chronic Psychiatric History: Reports: Anxiety, Depression, Mood Swings, Panic Attack Endocrine/Metabolic History: Reports: Diabetes, Type II, Obesity/BMI 30+ Hematologic History: Reports: Anemia Dermatologic History: Reports: Psoriasis, Venous Stasis Dermatitis - Infectious Disease History Infectious Disease History: Reports: Chicken Pox - Past Surgical History HEENT Surgical History: Reports: None, Oral Surgery GI Surgical History: Reports: Bariatric Procedure Female Surgical History: Reports: Other (See Below) Other Female Surgeries/Procedures: ureter valve reconstruction, essure Social & Family History - Family History Family Medical History: Noncontributory - Tobacco Use Smoking Status *Q: Current Every Day Smoker Years of Tobacco use: 33 Packs/Tins Daily: 1 - Caffeine Use Caffeine Use: Reports: Coffee, Energy Drinks - Recreational Drug Use Recreational Drug Use: No ED ROS GENERAL - Review of Systems Review Of Systems: Comprehensive ROS is negative, except as noted in HPI. ED EXAM, SKIN/RASH Exam: See Below Exam Limited By: No Limitations General Appearance: Alert, WD/WN, No Apparent Distress Ears: Normal External Exam, Normal Canal, Hearing Grossly Normal, Normal TMs Nose: Normal Inspection, Normal Mucosa, No Blood Throat/Mouth: Normal Inspection, Normal Lips, Normal Teeth, Normal Gums, Normal Oropharynx, Normal Voice, No Airway Compromise Head: Normocephalic, Other (15 mm superficial laceration of the left forehead. Bleeding controlled. No foreign body patient CMS intact.) Neck: Normal Inspection, Supple, Non-Tender, Full Range of Motion Respiratory/Chest: No Respiratory Distress, Lungs Clear, Normal Breath Sounds, No Accessory Muscle Use, Chest Non-Tender Cardiovascular: Normal Peripheral Pulses, Regular Rate, Rhythm, No Edema, No Gallop, No JVD, No Murmur, No Rub GI/Abdominal: Normal Bowel Sounds, Soft, Non-Tender, No Organomegaly, No Distention, No Abnormal Bruit, No Mass Rectal (Female) Exam: Normal Exam, Normal Rectal Tone Back Exam: Normal Inspection, Full Range of Motion, NT Extremities: Normal Inspection, Normal Range of Motion, Non-Tender, No Pedal Edema, Normal Capillary Refill Neurological: Alert, Oriented, CN II-XII Intact, Normal Cognition, Normal Gait, Normal Reflexes, No Motor/Sensory Deficits Psychiatric: Normal Affect, Normal Mood Lymphatic: No Adenopathy Course - Vital Signs Last Recorded V/S: Last Vital Signs Temp 36.3 C 11/16/19 13:05 Pulse 66 11/16/19 13:05 Resp 20 11/16/19 13:05 BP 130/76 11/16/19 13:05 Pulse Ox 97 11/16/19 13:05 - Orders/Labs/Meds Orders: Active Orders 24 hr Category Date Time Status Vaccines to be Administered [RC] PER UNIT ROUTINE Care 11/16/19 13:58 Active Meds: Medications Discontinued Medications Generic Name Dose Route Start Last Admin Trade Name Yao PRN Reason Stop Dose Admin Acetaminophen 1,000 mg 11/16/19 13:49 Tylenol PO 11/16/19 13:50 NOW ONE Acetaminophen 1,000 mg 11/16/19 13:55 11/16/19 14:00 Tylenol Extra Strength PO 11/16/19 13:56 1,000 mg ONETIME ONE Administration Diphtheria/Tetanus/Acell Pertussis 0.5 ml 11/16/19 13:58 Adacel IM 11/16/19 13:59 .ONCE ONE - Re-Assessments/Exams Free Text/Narrative Re-Assessment/Exam: 11/16/19 13:53 Patient was seen and examined shortly after arrival. Stable. I did ordered a tetanus shot and patient refused this. The patient refused CT scan head. Requested Tylenol and given 1 g oral Tylenol. Risk and benefits of the procedure of laceration repair discussed with the patient. Including but not limited to poor healing, nonhealing, scar formation, infection, bleeding, etc. was given the option to see a plastic surgeon for More cosmotic repair. Patient refused stitches and requested Dermabond. Wound was irrigated and washed was normal saline. Superficial, no bleeding and no foreign body. Dermabond applied. Good approximation. Also states that was applied. Patient tolerated the procedure well. Stable for discharge. Advised to Keep the wound dry and clean Close follow-up with PCP Come back for any concern or any worsening symptom Tylenol for discomfort 11/16/19 14:24 Departure - Departure Time of Disposition: 14:23 Disposition: Home, Self-Care 01 Condition: Good Clinical Impression: Forehead laceration - Discharge Information *PRESCRIPTION DRUG MONITORING PROGRAM REVIEWED*: Not Applicable *COPY OF PRESCRIPTION DRUG MONITORING REPORT IN PATIENT TONY: Not Applicable Instructions: Sterile Tape Wound Care, Laceration Care, Adult, Head Injury, Adult, [id number], Laceration Care, Adult, [id number] Referrals: PCP,None [Primary Care Provider] - Forms: ED Department Discharge Additional Instructions: Keep the wound dry and clean Close follow-up with PCP Come back for any concern or any worsening symptom Tylenol for discomfort Sepsis Event Note - Evaluation Sepsis Screening Result: No Definite Risk - Focused Exam Vital Signs: Vital Signs Temp Pulse Resp BP Pulse Ox 11/16/19 13:05 36.3 C 66 20 130/76 97 Date Exam was Performed: 11/16/19 Time Exam was Performed: 14:22 - My Orders Last 24 Hours: My Active Orders 11/16/19 13:58 Vaccines to be Administered [RC] PER UNIT ROUTINE - Assessment/Plan Last 24 Hours: My Active Orders 11/16/19 13:58 Vaccines to be Administered [RC] PER UNIT ROUTINE
[2019-11-16] MEDS ORDERED: Acetaminophen 325 MG Tab PO ONE (13:49)
[2019-11-16] MEDS ORDERED: Acetaminophen 500 MG Tab PO ONE (13:55)
[2019-11-16] MEDS ORDERED: Diphtheria,Pertussis(Acell),Tetanus Vaccine 0.5 ML SDV IM ONE (13:58)
== END 2019-11-16 14:37 | disposition home or self-care (01) ==
LOC: JP.ED 12:55
DX: S01.81XA Laceration without foreign body of other part of head, initial encounter (principal); I12.9 Hypertensive chronic kidney disease with stage 1 through stage 4 chronic kidney disease, or unspecified chronic kidney disease; N18.3 Chronic kidney disease, stage 3 (moderate); D63.1 Anemia in chronic kidney disease; J45.909 Unspecified asthma, uncomplicated; E78.00 Pure hypercholesterolemia, unspecified; F41.9 Anxiety disorder, unspecified; F32.9 Major depressive disorder, single episode, unspecified; F17.210 Nicotine dependence, cigarettes, uncomplicated; Z88.1 Allergy status to other antibiotic agents; Z88.8 Allergy status to other drugs, medicaments and biological substances; Z88.5 Allergy status to narcotic agent; W22.8XXA Striking against or struck by other objects, initial encounter; Y99.0 Civilian activity done for income or pay
CPT/HCPCS: 12011; 99283; A9270

== ENCOUNTER 2021-02-15 10:24 | Emergency (ER) | payer MEDICAID ==
[2021-02-15 10:53] VITALS: BP 154/76; PULSE 76
--- NOTE | 2021-02-15 11:35 | EDM.PDOC ---
ED HPI GENERAL MEDICAL PROBLEM - General Chief Complaint: General Stated Complaint: WATER RETENTION Time Seen by Provider: 02/15/21 11:04 Source of Information: Reports: Patient History Limitations: Reports: No Limitations - History of Present Illness INITIAL COMMENTS - FREE TEXT/NARRATIVE: 45 yo female presents with right sided flank pain and peripheral edema. 2 weeks ago she did injure her back while starting her lawnmower. She feels her current pain is different then her baseline chronic pain. She does have an extensive medical hx of issues with her right kidney per pt. afebrile. mild SOB with activity. - Related Data Allergies Allergy/AdvReac Type Severity Reaction Status Date / Time azithromycin [From Zithromax] Allergy Rash Verified 02/15/21 10:57 codeine Allergy Rash Verified 02/15/21 10:57 Oiuvtxc-Sqg-Ils Reductase AdvReac Muscle Verified 02/15/21 10:57 Inhibitor Aches moth balls Allergy Rash Uncoded 02/15/21 10:57 Home Meds: Home Meds Calcium Citrate/Vitamin D3 [Calcium Citrate - Vit D Caplet] 1 tab PO BID 12/19/17 [History] Multivitamins [Childrens Chewable Vitamin] 1 tab PO BID 12/19/17 [History] Cholecalciferol (Vitamin D3) [Vitamin D3] 3,000 units PO DAILY 11/14/18 [History] Cyclobenzaprine HCl 5 mg PO TID PRN 11/14/18 [History] DULoxetine [Cymbalta] 90 mg PO DAILY 11/16/19 [History] Pregabalin 450 mg PO BEDTIME 11/16/19 [History] Citalopram [Citalopram HBr] 40 mg PO DAILY 02/15/21 [History] Ketorolac [Toradol] 10 mg PO Q4H PRN 02/15/21 [History] Past Medical History - Past Health History Medical/Surgical History: Denies Medical/Surgical History HEENT History: Reports: Other (See Below) Other HEENT History: conjuctivitis in left eye, right eye injury in 2013 Cardiovascular History: Reports: High Cholesterol Respiratory History: Reports: Asthma Genitourinary History: Reports: Renal Calculus, Renal Disease, UTI, Recurrent Other Genitourinary History: stage III kidney disease 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: Dysfunctional Uterine Bleeding, Endometrial Ablation, Musculoskeletal History: Reports: Arthritis, Fibromyalgia Neurological History: Reports: Headaches, Chronic Psychiatric History: Reports: Anxiety, Depression, Mood Swings, Panic Attack Endocrine/Metabolic History: Reports: Diabetes, Type II, Obesity/BMI 30+ Hematologic History: Reports: Anemia Dermatologic History: Reports: Psoriasis, Venous Stasis Dermatitis - Infectious Disease History Infectious Disease History: Reports: Chicken Pox - Past Surgical History HEENT Surgical History: Reports: None, Oral Surgery Cardiovascular Surgical History: Reports: None GI Surgical History: Reports: Bariatric Procedure Female Surgical History: Reports: Other (See Below) Other Female Surgeries/Procedures: ureter valve reconstruction, essure Endocrine Surgical History: Reports: None Neurological Surgical History: Reports: None Musculoskeletal Surgical History: Reports: Carpal Tunnel Dermatological Surgical History: Reports: Other (See Below) Social & Family History - Family History Family Medical History: No Pertinent Family History - Tobacco Use Tobacco Use Status *Q: Current Every Day Tobacco User Years of Tobacco use: 20 Packs/Tins Daily: 1 - Caffeine Use Caffeine Use: Reports: Coffee, Energy Drinks ED ROS GENERAL - Review of Systems Review Of Systems: See Below Constitutional: Reports: Fatigue. Denies: Fever, Chills Respiratory: Reports: Shortness of Breath, Cough. Denies: Wheezing Cardiovascular: Reports: Blood Pressure Problem, Edema. Denies: Chest Pain GI/Abdominal: Denies: Abdominal Pain Skin: Denies: Rash Psychiatric: Reports: Anxiety ED EXAM, GENERAL - Physical Exam Exam: See Below Exam Limited By: No Limitations General Appearance: Alert, WD/WN, No Apparent Distress Neck: Normal Inspection, Supple, Non-Tender, Full Range of Motion. No: Lymphadenopathy (R), Lymphadenopathy (L) Respiratory/Chest: No Respiratory Distress, Lungs Clear, Normal Breath Sounds, No Accessory Muscle Use, Chest Non-Tender. No: Crackles, Rhonchi, Wheezing Cardiovascular: Normal Peripheral Pulses, Regular Rate, Rhythm, No Gallop, No Murmur, Other (nonpitting edema bilaterally) GI/Abdominal: Soft, Non-Tender Neurological: Alert, Oriented Psychiatric: Normal Affect, Normal Mood Skin Exam: Warm, Dry, Intact Course - Vital Signs Last Recorded V/S: Last Vital Signs Temp 36.6 C 02/15/21 10:56 Pulse 76 02/15/21 10:56 Resp 18 02/15/21 10:56 BP 154/76 H 02/15/21 10:56 Pulse Ox 98 05/31/21 10:56 - Orders/Labs/Meds Orders: Active Orders 24 hr Category Date Time Status Sodium Chloride 0.9% [Normal Saline] 1,000 ml Med 02/15/21 13:00 Active IV ASDIRECTED Medication Orders Sodium Chloride (Normal Saline) 1,000 mls @ 999 mls/hr IV ASDIRECTED ARELI Last Admin: 02/15/21 13:08 Dose: 999 mls/hr Documented by: ARMANDO Labs: Laboratory Tests 02/15/21 02/15/21 02/15/21 Range/Units 11:27 11:35 11:35 WBC 6.0 (4.5-11.0) K/uL RBC 3.46 (3.30-5.50) M/uL Hgb 10.6 L D (12.0-15.0) g/dL Hct 33.8 L (36.0-48.0) % MCV 98 (80-98) fL MCH 31 (27-31) pg MCHC 31 L (32-36) % Plt Count 161 (150-400) K/uL Neut % (Auto) 63.7 (36-66) % Lymph % (Auto) 21.6 L (24-44) % [place] % (Auto) 8.5 H (2-6) % Eos % (Auto) 6.0 H (2-4) % Baso % (Auto) 0.2 (0-1) % Sodium 143 (140-148) mmol/L Potassium 4.4 (3.6-5.2) mmol/L Chloride 105 (100-108) mmol/L Carbon Dioxide 28 (21-32) mmol/L Anion Gap 9.9 (5.0-14.0) mmol/L BUN 22 H (7-18) mg/dL Creatinine 1.3 H (0.6-1.0) mg/dL Est Cr Clr Drug Dosing 50.08 mL/min Estimated GFR (MDRD) 44 L (>60) Glucose 106 (74-106) mg/dL Calcium 8.4 L (8.5-10.1) mg/dL Urine Color Yellow (YELLOW) Urine Appearance Clear (CLEAR) Urine pH 6.0 (5.0-8.0) Ur Specific Star 1.020 (1.008-1.030) Urine Protein Negative (NEGATIVE) mg/dL Urine Glucose (UA) Negative (NEGATIVE) mg/dL Urine Ketones Negative (NEGATIVE) mg/dL Urine Occult Blood Negative (NEGATIVE) Urine Nitrite Negative (NEGATIVE) Urine Bilirubin Negative (NEGATIVE) Urine Urobilinogen 0.2 (0.2-1.0) EU/dL Ur Leukocyte Esterase Negative (NEGATIVE) Urine RBC 0-5 (0-5) Urine WBC 0-5 (0-5) Ur Epithelial Cells Few Amorphous Sediment Not seen Urine Bacteria Few Urine Mucus Not seen Urine Other See note Meds: Medications Generic Name Dose Route Start Last Admin Trade Name Freq PRN Reason Stop Dose Admin Sodium Chloride 1,000 mls @ 999 mls/hr 02/15/21 13:00 02/15/21 13:08 Normal Saline IV 999 mls/hr ASDIRECTED ARELI Administration Discontinued Medications Generic Name Dose Route Start Last Admin Trade Name Freq PRN Reason Stop Dose Admin Cyclobenzaprine HCl 10 mg 02/15/21 12:47 02/15/21 13:08 Cyclobenzaprine 10 Mg Tab PO 02/15/21 12:48 10 mg ONETIME ONE Administration Furosemide 20 mg 02/15/21 12:46 02/15/21 13:08 Furosemide 20 Mg/2 Ml Vial IVPUSH 02/15/21 12:47 20 mg ONETIME ONE Administration - Re-Assessments/Exams Free Text/Narrative Re-Assessment/Exam: 02/15/21 14:40 output high after Lasix, feet feel less swollen. back pain improved Departure - Departure Time of Disposition: 14:40 Disposition: Home, Self-Care 01 Condition: Good Clinical Impression: Lumbar pain, Peripheral edema - Discharge Information *PRESCRIPTION DRUG MONITORING PROGRAM REVIEWED*: Not Applicable *COPY OF PRESCRIPTION DRUG MONITORING REPORT IN PATIENT TONY: Not Applicable Instructions: Peripheral Edema Referrals: PCP,None [Primary Care Provider] - Forms: ED Department Discharge Additional Instructions: utilize cyclobenzaprine for back pain and spasm stretching increase fluid intake to half your body weight in fluid ounces daily follow-up primary care provider if edema continues Sepsis Event Note (ED) - Evaluation Sepsis Screening Result: No Definite Risk - Focused Exam Vital Signs: Vital Signs Temp Pulse Resp BP Pulse Ox 02/15/21 10:56 36.6 C 76 18 154/76 H 98 02/15/21 10:51 36.6 C 76 18 154/76 H 98 - My Orders Last 24 Hours: My Active Orders 02/15/21 13:00 Sodium Chloride 0.9% [Normal Saline] 1,000 ml IV ASDIRECTED - Assessment/Plan Last 24 Hours: My Active Orders 02/15/21 13:00 Sodium Chloride 0.9% [Normal Saline] 1,000 ml IV ASDIRECTED
[2021-02-15] MEDS ORDERED: Furosemide 20 MG/2 ML VIAL IVPUSH ONE (12:46)
[2021-02-15] MEDS ORDERED: Cyclobenzaprine 10 MG Tab PO ONE (12:47)
[2021-02-15] MEDS ORDERED: Sodium Chloride 0.9% 1,000 ML IV SCH (13:00)
== END 2021-02-15 15:09 | disposition home or self-care (01) ==
LOC: JP.ED 10:24
DX: R60.0 Localized edema (principal); M54.5 Low back pain; E11.22 Type 2 diabetes mellitus with diabetic chronic kidney disease; N18.30 Chronic kidney disease, stage 3 unspecified; J45.909 Unspecified asthma, uncomplicated; E66.9 Obesity, unspecified; Z68.41 Body mass index [BMI] 40.0-44.9, adult; Z88.1 Allergy status to other antibiotic agents; Z88.5 Allergy status to narcotic agent; Z91.048 Other nonmedicinal substance allergy status; Z72.0 Tobacco use; Z79.899 Other long term (current) drug therapy
CPT/HCPCS: 36415; 80048; 81001; 85025; 96374; 99284; A9270; J1940; J7030

== ENCOUNTER 2021-03-07 12:09 | Emergency (ER) | payer MEDICAID ==
[2021-03-07 12:53] VITALS: BP 119/66; PULSE 66
--- NOTE | 2021-03-07 13:01 | EDM.PDOC ---
ED HPI GENERAL MEDICAL PROBLEM - General Chief Complaint: Lower Extremity Injury/Pain Stated Complaint: BROKEN TOE ON LT FOOT Time Seen by Provider: 03/07/21 12:45 Source of Information: Reports: Patient - History of Present Illness INITIAL COMMENTS - FREE TEXT/NARRATIVE: Marlene is a 45 year old female whom present to ER due to left 5th digit toe pain which started abruptly this am. Marlene was running to grab socks because late for work when she caught her left fifth toe on the bed post resulting in immediate pain and swelling. Marlene denies any other injuries with incident. - Related Data Allergies Allergy/AdvReac Type Severity Reaction Status Date / Time azithromycin [From Zithromax] Allergy Rash Verified 03/07/21 12:42 codeine Allergy Rash Verified 03/07/21 12:42 Nmwbusk-Wmk-Utf Reductase AdvReac Muscle Verified 03/07/21 12:42 Inhibitor Aches moth balls Allergy Rash Uncoded 03/07/21 12:42 Home Meds: Home Meds Calcium Citrate/Vitamin D3 [Calcium Citrate - Vit D Caplet] 1 tab PO BID 12/19/17 [History] Multivitamins [Childrens Chewable Vitamin] 1 tab PO BID 12/19/17 [History] Cholecalciferol (Vitamin D3) [Vitamin D3] 3,000 units PO DAILY 11/14/18 [History] DULoxetine [Cymbalta] 90 mg PO DAILY 11/16/19 [History] Pregabalin 450 mg PO BEDTIME 11/16/19 [History] Citalopram [Citalopram HBr] 40 mg PO DAILY 02/15/21 [History] Cyanocobalamin (Vitamin B-12) [Vitamin B-12] 1 tab SL DAILY 03/07/21 [History] tiZANidine [Zanaflex] 1 tab PO TID 03/07/21 [History] Past Medical History - Past Health History Medical/Surgical History: Denies Medical/Surgical History HEENT History: Reports: Other (See Below) Other HEENT History: conjuctivitis in left eye, right eye injury in 2013 Cardiovascular History: Reports: High Cholesterol Respiratory History: Reports: Asthma Genitourinary History: Reports: Renal Calculus, Renal Disease, UTI, Recurrent Other Genitourinary History: stage III kidney disease 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: Dysfunctional Uterine Bleeding, Endometrial Ablation, Musculoskeletal History: Reports: Arthritis, Fibromyalgia Neurological History: Reports: Headaches, Chronic Psychiatric History: Reports: Anxiety, Depression, Mood Swings, Panic Attack Endocrine/Metabolic History: Reports: Diabetes, Type II, Obesity/BMI 30+ Hematologic History: Reports: Anemia Dermatologic History: Reports: Psoriasis, Venous Stasis Dermatitis - Infectious Disease History Infectious Disease History: Reports: Chicken Pox - Past Surgical History HEENT Surgical History: Reports: None, Oral Surgery Cardiovascular Surgical History: Reports: None GI Surgical History: Reports: Bariatric Procedure Female Surgical History: Reports: Other (See Below) Other Female Surgeries/Procedures: ureter valve reconstruction, essure Endocrine Surgical History: Reports: None Neurological Surgical History: Reports: None Musculoskeletal Surgical History: Reports: Carpal Tunnel Dermatological Surgical History: Reports: Other (See Below) Social & Family History - Family History Family Medical History: No Pertinent Family History - Tobacco Use Tobacco Use Status *Q: Current Every Day Tobacco User Years of Tobacco use: 30 Packs/Tins Daily: 1 - Caffeine Use Caffeine Use: Reports: Coffee, Energy Drinks Review of Systems - Review of Systems Review Of Systems: Comprehensive ROS is negative, except as noted in HPI. ED EXAM, GENERAL - Physical Exam Exam: See Below Exam Limited By: No Limitations General Appearance: Alert, WD/WN, No Apparent Distress, Mild Distress (Left fift toe) Eye Exam: Bilateral Eye: Normal Inspection Ears: Hearing Grossly Normal Nose: Normal Inspection Throat/Mouth: Normal Inspection, Normal Voice, No Airway Compromise Neck: Full Range of Motion Respiratory/Chest: No Respiratory Distress, Lungs Clear Cardiovascular: Normal Peripheral Pulses, Regular Rate, Rhythm Extremities: Other (left foot pain in fifth digit with slight swelling and bruising. No abrasions or lacerations) Neurological: Alert, Oriented, CN II-XII Intact Psychiatric: Normal Affect, Normal Mood Skin Exam: Warm, Dry, Intact Course - Vital Signs Last Recorded V/S: Last Vital Signs Temp 36.5 C 03/07/21 12:50 Pulse 66 03/07/21 12:50 Resp 14 03/07/21 12:50 BP 119/66 03/07/21 12:50 Pulse Ox 94 L 03/07/21 12:50 - Orders/Labs/Meds Orders: Active Orders 24 hr Category Date Time Status Toes Fifth Digit Lt T4 [CR] Stat Exams 03/07/21 12:57 Taken - Re-Assessments/Exams Free Text/Narrative Re-Assessment/Exam: 03/07/21 13:43 Reviewed toe fracture with patient and treatment options (post op shoe) or hard soled shoe at home based on comfort and pain. Left Fifth Toe xray: Acute proximal mid shaft phalanx fracture noted with slight displacement/rotation. Images read by me and actions taken based on reading. Radiology report pending at time of ER visit Departure - Departure Time of Disposition: 13:46 Disposition: Home, Self-Care 01 Clinical Impression: Injury of toe on left foot, Fracture of phalanx of foot - Discharge Information Instructions: Toe Fracture With Rehab-SportsMed Referrals: PCP,None [Primary Care Provider] - Forms: ED Department Discharge Additional Instructions: Tylenol 500-1000 mg every 6-8 hrs for mild pain. Ibuprofen 600-800mg every 6-8 hrs for moderate pain and swelling with food. Ice 15-20 minutes 2-3 time per day. Post OP shoe and alma delia tape with hard soled shoe recommended. Sepsis Event Note (ED) - Evaluation Sepsis Screening Result: No Definite Risk - Focused Exam Vital Signs: Vital Signs Temp Pulse Resp BP Pulse Ox 03/07/21 12:50 36.5 C 66 14 119/66 94 L - My Orders Last 24 Hours: My Active Orders 03/07/21 12:57 Toes Fifth Digit Lt T4 [CR] Stat - Assessment/Plan Last 24 Hours: My Active Orders 03/07/21 12:57 Toes Fifth Digit Lt T4 [CR] Stat
--- NOTE | 2021-03-08 10:09 | CR ---
Toes Fifth Digit Lt T4 CLINICAL HISTORY: Injury FINDINGS: There is a slightly angulated fracture of the fifth proximal phalanx. IMPRESSION: Fracture fifth proximal phalanx
== END 2021-03-07 14:05 | disposition home or self-care (01) ==
LOC: JP.ED 12:09
DX: S92.512A Displaced fracture of proximal phalanx of left lesser toe(s), initial encounter for closed fracture (principal); E78.00 Pure hypercholesterolemia, unspecified; E11.22 Type 2 diabetes mellitus with diabetic chronic kidney disease; N18.30 Chronic kidney disease, stage 3 unspecified; E66.9 Obesity, unspecified; Z68.30 Body mass index [BMI] 30.0-30.9, adult; Z88.5 Allergy status to narcotic agent; Z88.1 Allergy status to other antibiotic agents; Z91.048 Other nonmedicinal substance allergy status; W23.0XXA Caught, crushed, jammed, or pinched between moving objects, initial encounter; Y93.02 Activity, running
CPT/HCPCS: 73660-26-T4; 73660-T4; 99283; 99283-25

== ENCOUNTER 2021-06-05 09:39 | Emergency (ER) | payer MEDICAID ==
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
[2021-06-05] MEDS ORDERED: Ketorolac 30 MG/ML SDV IM ONE (11:52)
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
[2021-06-05 12:24] VITALS: BP 139/71; PULSE 60
== END 2021-06-05 12:25 | disposition home or self-care (01) ==
LOC: JP.ED 09:39
DX: S01.312A Laceration without foreign body of left ear, initial encounter (principal); S20.212A Contusion of left front wall of thorax, initial encounter; J45.909 Unspecified asthma, uncomplicated; E11.22 Type 2 diabetes mellitus with diabetic chronic kidney disease; N18.30 Chronic kidney disease, stage 3 unspecified; E66.9 Obesity, unspecified; Z68.38 Body mass index [BMI] 38.0-38.9, adult; Z72.0 Tobacco use; Z88.1 Allergy status to other antibiotic agents; Z88.5 Allergy status to narcotic agent; Z91.048 Other nonmedicinal substance allergy status; Z79.899 Other long term (current) drug therapy; Y04.0XXA Assault by unarmed brawl or fight, initial encounter
CPT/HCPCS: 70486; 71250; 96372; 99284; J1885